=== PATIENT | female | born 2000 | race Caucasian/White ===

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

== ENCOUNTER 2018-12-19 20:55 | Inpatient (IN) | payer OTHER, MEDICAID ==
[2018-12-19] MEDS ORDERED: SODIUM CHLORIDE 0.9% 500 ML 500 ML IV ONE (21:18)
[2018-12-19] MEDS ORDERED: SODIUM CHLORIDE 0.9% 1,000 ML IV ONE (21:18)
[2018-12-19 21:30] LABS: Basophils % (A) 0 %; Eosinophils # (A) 0.3 k/uL (0-0.7); Eosinophils % (A) 3 %; HCT 33.4 % (34.0-46.0); HGB 10.8 gm/dL (11.4-16.0); Lymphocytes # (A) 2.6 k/uL (1.0-4.8); Lymphocytes % (A) 26 %; MCH 26.4 pg (25.0-35.0); MCHC 32.5 g/dL (31.0-37.0); MCV 81.4 fL (80.0-100.0); Monocytes # (A) 0.5 k/uL (0-1.0); Monocytes % (A) 5 %; Neutrophils # (A) 6.5 k/uL (1.3-7.7); Neutrophils % (A) 65 %; Platelet Count 254 k/uL (150-450); RDW 14.2 % (11.5-15.5)
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
[2018-12-19 21:43] LABS: ALT 19 U/L (9-52); AST 16 U/L (14-36); Acetaminophen <10.0 ug/mL; African American GFR (CKD) >90 (>60 ml/min/1.73 sqM); Albumin 3.6 g/dL (3.5-5.0); Alkaline Phosphatase 73 U/L (38-126); Anion Gap 7 mmol/L; Blood Urea Nitrogen 16 mg/dL (7-17); Calcium 7.9 mg/dL (8.4-10.2); Carbon Dioxide 20 mmol/L (22-30); Chloride 114 mmol/L (98-107); Glucose 113 mg/dL (74-99); Potassium 3.4 mmol/L (3.5-5.1); Salicylate <1.0 mg/dL; Sodium 141 mmol/L (137-145); Total Bilirubin 0.3 mg/dL (0.2-1.3)
[2018-12-20 01:45] LABS: Appearance,Urine Clear (Clear); Bilirubin,Urine Negative (Negative); Blood,Urine Negative (Negative); Color,Urine Light Yellow; Glucose,Urine (UA) 2+ (Negative); Ketones,Urine Negative (Negative); Leukocyte Esterase,Urine Small (Negative); Mucus,Urine Rare /hpf; Nitrite,Urine Positive (Negative); PH, Urine 5.5 (5.0-8.0); Protein,Urine Negative (Negative); Specific Gravity,Urine 1.014 (1.001-1.035); Squamous Epithelial Cell,Urine 1 /hpf (0-4); Urobilinogen,Urine <2.0 mg/dL (<2.0)
[2018-12-20 01:56] LABS: Amphetamine Screen,Urine Not Detected (NotDetected); Barbiturate Screen,Urine Not Detected (NotDetected); Benzodiazepines Screen,Urine Not Detected (NotDetected); Cocaine Screen,Urine Not Detected (NotDetected); Methadone Screen, Urine Not Detected (NotDetected); Opiate Screen,Urine Not Detected (NotDetected); Oxycodone Screen, Urine Not Detected (NotDetected); Phencyclidine Screen,Urine Not Detected (NotDetected); Tricyclic Antidepressant,Urine Not Detected (NotDetected); Urn Cannabinoid Scrn Not Detected (NotDetected)
[2018-12-20] MEDS ORDERED: ONDANSETRON 4 MG/2 ML VIAL IVP STA (09:37)
[2018-12-20] MEDS ORDERED: MAGNESIUM HYDROXIDE 2,400 MG/10 ML CUP PO PRN (17:46)
[2018-12-20 17:48] VITALS: BMI 30.2
[2018-12-20] MEDS: ZIPRASIDONE 20 MG VIAL IM PRN (23:28)
[2018-12-21] MEDS: NICOTINE 21MG/24HR PATCH TRANSDERM SCH ×2 (08:17→19:04)
[2018-12-21] MEDS ORDERED: NICOTINE 14MG/24HR PATCH TRANSDERM SCH (09:00)
[2018-12-21 09:13] LABS: ALT 24 U/L (9-52); AST 12 U/L (14-36); African American GFR (CKD) >90 (>60 ml/min/1.73 sqM); Albumin 3.8 g/dL (3.5-5.0); Alkaline Phosphatase 52 U/L (38-126); Anion Gap 9 mmol/L; Bilirubin, Delta 0.2 mg/dL (0.0-0.2); Bilirubin,Unconjugated 0.1 mg/dL (0.0-1.1); Blood Urea Nitrogen 13 mg/dL (7-17); Calcium 9.1 mg/dL (8.4-10.2); Carbon Dioxide 22 mmol/L (22-30); Chloride 110 mmol/L (98-107); Cholesterol 122 mg/dL (<200); Glucose 111 mg/dL (74-99); HDL Cholesterol 33 mg/dL (40-60); LDL Cholesterol,Calculated 67 mg/dL (0-99); Potassium 4.5 mmol/L (3.5-5.1); Sodium 141 mmol/L (137-145); Total Bilirubin 0.3 mg/dL (0.2-1.3); Total Protein 6.3 g/dL (6.3-8.2); Triglycerides 111 mg/dL (<150)
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
[2018-12-21] MEDS: ACETAMINOPHEN TAB 325 MG TAB PO PRN (14:05)
--- NOTE | 2018-12-21 14:50 | P.HPIM ---
History of Present Illness Chief Complaint: Medical management and history and physical This is a 18-year-old female who is admitted to the ICU under psychiatric service for overdose on medication. Patient apparently overdosed on baclofen, naproxen, melatonin and Trileptal. Patient the time examination was not complaining of any chest pain, racing heart, no cough, no shortness of breath, no abdominal pain, nausea and vomiting, or diarrhea constipation. She said that she has a history of back pain and she was taking baclofen and naproxen which were helping her but she is off of those medications right now as she overdosed on them. Patient also says that she has a history of herpes and she takes Valtrex at home every day. Review of Systems All systems: negative Past Medical History Past Medical History: No Reported History Additional Past Medical History / Comment(s): SCOLIOSIS., PT ADOPTED-DOES NOT KNOW HER FAMILY HX. HSV 2. MISCARRIAGE 2018 History of Any Multi-Drug Resistant Organisms: None Reported Past Surgical History: No Surgical Hx Reported Additional Past Anesthesia/Blood Transfusion Reaction / Comment(s): NO ANESTHESIA HX. Past Psychological History: ADD/ADHD, Anxiety, Bipolar, Depression Smoking Status: Current every day smoker Past Alcohol Use History: Occasional Additional Past Alcohol Use History / Comment(s): SMOKED OCCASIONALLY FOR <1 YEAR., QUIT SMOKING AUGUST 2017. Past Drug Use History: Cocaine, Marijuana Additional Drug Use History / Comment(s): NO CURRENT MARIJUANA USE. - Past Family History Mother Additional Family Medical History / Comment(s): pt is adopted Medications and Allergies Home Medications Medication Instructions Recorded Confirmed Type Baclofen [Lioresal] 10 mg PO TID PRN 12/19/18 12/20/18 History Estarylla 1 tab PO DAILY 12/19/18 12/20/18 History Naproxen 500 mg PO Q12H PRN 12/19/18 12/20/18 History valACYclovir [Valtrex] 500 mg PO DAILY 12/19/18 12/20/18 History Allergies Allergy/AdvReac Type Severity Reaction Status Date / Time cephalexin [From Keflex] Allergy Unknown Rash/Hives Verified 12/20/18 17:47 PEACHES Allergy Rash/Hives Uncoded 12/20/18 17:49 Physical Exam Vitals: Vital Signs Temp Pulse Resp BP BP 12/21/18 06:49 97.5 F L 74 16 102/53 12/20/18 17:25 98.0 F 86 16 134/76 134/76 Intake and Output 12/20/18 12/21/18 12/21/18 22:59 06:59 14:59 Intake Total 1999 Balance 1999 Intake: Amount of Fluid Infused ( 2000 ml) Other: Weight 79.83 kg On exam, alert and oriented x3. HEENT: Conjunctivae normal. eyes normal. NECK: No JVD. No thyroid enlargement. No LNs CARDIOVASCULAR: S1, S2 positive RESPIRATION: Breath sounds diminished in the bases. No rhonchi or crackles. No bronchial breathing. ABDOMEN: Soft, nontender . No guarding. no masses palpable. No ascites, No hepatosplenomegaly.Bowel sounds heard. LEGS: No edema. no swelling NERVOUS SYSTEM: Cranial N 2-12 grossly normal. Moves all 4 limbs. No focal deficits. No sensory deficit. No signs of cerebellar dysfucntion. Skin: no ulcer no rash Results CBC & Chem 7: 12/19/18 21:14 12/21/18 08:15 Labs: Abnormal Lab Results - Last 24 Hours (Table) 12/21/18 Range/Units 08:15 Chloride 110 H (98-107) mmol/L Glucose 111 H (74-99) mg/dL AST 12 L (14-36) U/L HDL Cholesterol 33 L (40-60) mg/dL Thrombosis Risk Factor Assmnt - Choose All That Apply Any of the Below Risk Factors Present?: No Other Risk Factors: No Other congenital or acquired thrombophilia - If yes, enter type in comment: No Thrombosis Risk Factor Assessment Level: Very Low Risk Assessment and Plan Assessment: - Intentional overdose of medication - Bipolar disorder - Depression - History of herpes - History of back pain Plan - Patient is admitted under psychiatric service and psychiatric [facility]ottlie[facility] - We will continue to keep her off of the medication and she overdosed on them. - Patient says that she takes Valtrex at home. We will hold off on the Valtrex for now and see how she does. - Patient can be given Tylenol when necessary if needed for back pain - Less of the medical care as per psychiatric service - We'll continue to follow the patient along with you. If you have any questions please do not hesitate to page us
[2018-12-21] MEDS: MAG HYDROX/AL HYDROX/SIMETH 30 ML CUP PO PRN (19:04)
[2018-12-21] MEDS: ARIPiprazole 10 MG TAB PO SCH (21:39)
[2018-12-21] MEDS: MELATONIN 1 MG TAB PO SCH (21:39)
[2018-12-22] MEDS: NICOTINE 21MG/24HR PATCH TRANSDERM SCH ×2 (07:23→16:17)
--- NOTE | 2018-12-22 09:16 | P.PN ---
Progress Note - Text Progress Note Date: 12/22/18 Interval History: Patient is a 18-year-old female who is seen this morning, she is reporting that she tossed and turned all night and couldn't sleep and feels tired this morning. She reports that she's not feeling as depressed and was able to get up and eat breakfast this morning. Patient reports no current suicidal thoughts and states she attended the activity groups and wrap up group yesterday. She reports no side effects from the medication. Mental Status: Appearance/Attitude: Patient is casually dressed, makes eye contact and was cooperative. Behavior: Patient does not exhibit any psychomotor agitation or retardation. Speech/Language: Patient's speech is spontaneous of normal volume and rhythm and she is coherent Thought Process: Patient is goal-directed there is no evidence of loose associations or flight of ideas Thought Content: Patient denies any auditory or visual hallucinations and no delusions or paranoid ideation is elicited. Patient states she tossed and turned most of the night feels tired this morning but was able to get up and eat breakfast. She reports no side effects from the medication and states she attended activity groups in the wrap up group yesterday. Suicidal/Homicidal Ideation: Patient denies any current suicidal or homicidal ideation Sensorium/Cognition: Patient is alert and oriented to person, place, and time and her recent and remote memory are grossly intact Mood/Affect: Patient's mood remains bland and her affect blunted Insight/Judgment: Patient's insight and judgment are fair Assessment: Patient was compliant with medication, attended activity groups and wrap up group yesterday but states that she tossed and turned most of the night and feels tired this morning. She states that she was able to get up and eat breakfast and is not currently feeling suicidal. She states that she still feels somewhat depressed. Plan: Patient will continue on Abilify 10 mg to stabilize her mood, she was encouraged to attend groups and activities and will increase her melatonin to 3 mg at bedtime to assist with her sleep. Patient continues to require hospitalization to further stabilize her mood.
[2018-12-22 11:46] LABS: Hemoglobin A1C 6.1 % (4.0-6.0)
[2018-12-22] MEDS: ACETAMINOPHEN TAB 325 MG TAB PO PRN (12:32)
[2018-12-22] MEDS: valACYclovir 500 MG TAB PO SCH (16:16)
[2018-12-22] MEDS: MAG HYDROX/AL HYDROX/SIMETH 30 ML CUP PO PRN (19:01)
[2018-12-22] MEDS: MELATONIN 1 MG TAB PO SCH (21:08)
[2018-12-22] MEDS: ARIPiprazole 10 MG TAB PO SCH (21:08)
[2018-12-22] MEDS ORDERED: WATER FOR INJECTION, STERILE 10 ML IV ONE (21:49)
[2018-12-22] MEDS ORDERED: ZIPRASIDONE 20 MG VIAL IM ONE (21:49)
[2018-12-22] MEDS: ZIPRASIDONE 20 MG VIAL IM PRN (21:51)
[2018-12-23] MEDS: NICOTINE 21MG/24HR PATCH TRANSDERM SCH (07:24)
[2018-12-23] MEDS: valACYclovir 500 MG TAB PO SCH (07:24)
[2018-12-23] MEDS: ACETAMINOPHEN TAB 325 MG TAB PO PRN (11:19)
--- NOTE | 2018-12-23 14:41 | PN ---
PROGRESS NOTE DATE OF SERVICE: 12/23/2018 CHIEF COMPLAINT: The patient was depressed. She felt worthless. She had thoughts of cutting herself and she overdosed. INTERVAL HISTORY: The patient has been doing fair. She had a quiet evening last night. She comes out on the unit. She interacts for the most part appropriately. She attends groups. Toward the nighttime she started getting anxious. She said she could not fall asleep; that got her more anxious, to the point where she got into quite an intense state. She requested p.r.n. medication and was given Geodon. She said she slept after that. Today she has been up. She comes out in the day area. She had attended one of the 2 groups so far today. She generally has been appropriate in her mood and function. It is noted that she got upset about some things that got discussed on a telephone call with her boyfriend. She asked for p.r.n. medications for that. Staff encouraged her to do some therapeutic activity to help calm herself. She ended up not taking any p.r.n. For the most part, her mood has been fairly good today. She talked at length about the issues she has struggled with with her family. She has a twin brother who is autistic. She talked about how she was adopted with her brother at [age] year of age. Somewhere in her childhood years she was told that she was adopted. She said she developed a sense of despair over that, thinking that her parents had abandoned her, as if there must have been something wrong with her. She can acknowledge poor self-esteem and a lot of self-blame. She notes that by around age 12 especially, she started to become quite rebellious. She ended up having some intermediate time and juvenile placement because of that. In her earlier day, she can acknowledge that she did have a tendency towards some acting-out behavior. She says that her brother, who is autistic, got a lot of attention, and that may have been a factor for some of her bad feeling. She dropped out of school early in high school and eventually got a GED. She says she does have interest in pursuing something in the science field. She tolerates her psychotropic medications. MENTAL STATUS: Patient gave fairly good eye contact. She was restless. She answered questions with direct responses. Her thoughts were clear. Her affect was a little intense, though not to a significant degree. Her mood was quiet, though not down or depressed. She did not appear to be distressed. There was no indication of thought disorder. Cognition was clear. ASSESSMENT: I will continue current diagnosis and treatment plan. I will continue psychotropic medications the same. I reviewed medications with the patient. She has just been increased on her Abilify. I strongly encouraged her to utilize coping skills to manage some of her difficult feelings as opposed to thinking about turning to medication. I will start her on Vistaril 25 mg 3 times a day p.r.n. The patient understands that she needs to do some therapeutic walking and relaxation techniques prior to receiving a p.r.n. medication. I will increase the patient's melatonin to 3 mg at bedtime as she requested, which she believes will help with sleep. We will focus on stabilization and discharge planning. JOSE LUIS / REINA: [id number] /
[2018-12-23 17:10] LABS: Iron Saturation 19.75 (12.00-45.00)
[2018-12-23] MEDS: NAPROXEN 250 MG TAB PO PRN (18:27)
[2018-12-23] MEDS: hydrOXYzine PAMOATE 25 MG CAP PO PRN (18:58)
[2018-12-23] MEDS: ARIPiprazole 10 MG TAB PO SCH (21:12)
[2018-12-23] MEDS: MELATONIN 1 MG TAB PO SCH (21:12)
[2018-12-24] MEDS: NICOTINE 21MG/24HR PATCH TRANSDERM SCH (08:31)
[2018-12-24] MEDS: valACYclovir 500 MG TAB PO SCH (08:31)
[2018-12-24] MEDS: NAPROXEN 250 MG TAB PO PRN (11:41)
--- NOTE | 2018-12-24 12:17 | PN ---
PROGRESS NOTE DATE OF SERVICE: 12/24/2018. CHIEF COMPLAINT: The patient was depressed. She felt worthless. She had thoughts of cutting herself and she overdosed. INTERVAL HISTORY: The patient has been doing fair. She had some ups and downs last evening. Her main issue yesterday was a telephone call from her mother. She said her mother made comments about her father dying and some of the issues that she said her mother had was that she does not help her mother around the house. She agreed that she has not been the best in that regard. She acknowledges that she has tended to be in denial about the fact that her father is seriously ill and that he is not likely to be alive for any extended length of time. 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 She says overall her mood is somewhat better. She said she slept fair last night. Staff documented that she slept 5-1/2 hours as of 5 in the morning. She has been attending groups. In general she has been appropriate in her behavior and function. She will interact with others. It is noted that yesterday after the after the telephone call, she was quite distressed and got p.r.n. Vistaril. I had instructed nursing to have her utilize some relaxation techniques before receiving medications. She tolerates her psychotropic medications. She feels the increase in melatonin is effective at helping her sleep. MENTAL STATUS: Patient sat with some restlessness. She answered questions with direct responses. Her thoughts were clear. Her affect was somewhat anxious and a little tense, though not significantly so. Her mood was reserved, though not down or depressed. She did not appear to be significantly distressed. There was no indication of thought disorder. Cognition was clear. ASSESSMENT: I will continue the current diagnosis and treatment plan. I will continue psychotropic medications the same. I have ordered an iron screen given that she has mild anemia with an MCV of 81. In addition, I will order a prolactin level. Patient says that she has had some breast discharge which was more prominent in the past when she was on Invega. She notes that she has been off Invega for 9 months, though continues to have some discharge on and off. She describes her periods as lasting about 7 days with a heavy flow which likely accounts for her anemia. We will continue to focus on stabilization and discharge planning. MMODL / IJN: [id number] /
[2018-12-24] MEDS: ACETAMINOPHEN TAB 325 MG TAB PO PRN (13:26)
[2018-12-24] MEDS: LIDOCAINE 5% PATCH TOPICAL SCH (15:57)
[2018-12-24] MEDS: ARIPiprazole 10 MG TAB PO SCH (21:20)
[2018-12-24] MEDS: MELATONIN 1 MG TAB PO SCH (21:20)
[2018-12-25] MEDS: valACYclovir 500 MG TAB PO SCH (08:34)
[2018-12-25] MEDS: LIDOCAINE 5% PATCH TOPICAL SCH (08:35)
[2018-12-25] MEDS: NICOTINE 21MG/24HR PATCH TRANSDERM SCH (08:35)
[2018-12-25] MEDS ORDERED: ARIPiprazole IM SYRINGE 400 MG (NO CHARGE) IM ONE (10:03)
--- NOTE | 2018-12-25 11:29 | P.PN ---
Progress Note - Text Progress Note Date: 12/25/18 Interval History: Patient is a 18-year-old female who was seen today and she states that the Abilify has been working well for her. She reports that she is now feeling more positive and more energized in the morning. She states that she's sleeping better and has used the Vistaril once or twice for anxiety. She reports that she is feeling better, her thinking is clear and she's been attending groups and activities. Patient reports no side effects from the medication. Mental Status: Appearance/Attitude: Patient is neatly and appropriately dressed, made eye contact and was cooperative. Behavior: Patient does not exhibit any psychomotor agitation or retardation. Speech/Language: Patient's speech was spontaneous of normal volume and rhythm and she is coherent. Thought Process: Patient is goal-directed there is no evidence of loose association or flight of ideas Thought Content: Patient denies any auditory or visual hallucinations and no delusions or paranoid ideation or elicited. Patient reports that her thinking is much clearer, she is no longer having any suicidal thoughts and is having a more positive outlook. She reports not feeling as depressed. Patient is sleeping and eating well. Suicidal/Homicidal Ideation: Patient denies any current suicidal or homicidal ideation Sensorium/Cognition: Patient is alert and oriented to person, place, and time and her recent and remote memory are grossly intact. Mood/Affect: Patient's mood is pleasant and her affect is appropriate Insight/Judgment: Patient's insight and judgment are fair Assessment: Patient states that her thinking is clearer, she is feeling more positive and no longer having any suicidal ideation. She does feel that the Abilify has been beneficial and she is feeling more motivated and has more energy. She states that she is leaping well at night and has used Vistaril occasionally for anxiety. Patient and I discussed her elevated prolactin level that she needs to continue to follow with her OB to see if he continues to drop now that she is no longer on Invega. Patient has been attending groups and activities. Plan: Patient will continue on Abilify 10 mg for 2 more weeks and then discontinue it as she will receive Abilify long-acting injectable form 100 mg IM today. Patient will continue on melatonin 3 mg at bedtime to target her sleep and Vistaril 25 mg as needed to target any anxiety symptoms. Patient and I discussed discharge tomorrow when she was agreeable with this plan.
[2018-12-25] MEDS: hydrOXYzine PAMOATE 25 MG CAP PO PRN (17:03)
[2018-12-25] MEDS: MELATONIN 1 MG TAB PO SCH (20:53)
[2018-12-25] MEDS: ARIPiprazole 10 MG TAB PO SCH (20:53)
[2018-12-26 07:02] VITALS: BP 108/67; PULSE 81; RESP 14; TEMP 98.3
[2018-12-26] MEDS: LIDOCAINE 5% PATCH TOPICAL SCH (08:39)
[2018-12-26] MEDS: valACYclovir 500 MG TAB PO SCH (08:40)
[2018-12-26] MEDS: NICOTINE 21MG/24HR PATCH TRANSDERM SCH ×2 (08:41→08:52)
--- NOTE | 2018-12-26 08:43 | P.DS ---
Providers Date of admission: 12/20/18 16:50 Expected date of discharge: 12/26/18 Attending physician: Juanita Delgado MD Consults: 12/20/18 17:46 Consult Physician Routine Consulting Provider: Cori Baires Consult Reason/Comments: H & P and medical care Do you want consulting provider notified?: Yes Primary care physician: Huong Gant [facility] Course: Discharge Diagnosis: Bipolar type II, current episode depressed; borderline personality disorder Reason for Admission: Patient is a 18-year-old female brought to the emergency room after taking an overdose of baclofen Naprosyn melatonin and Trileptal. Patient states that she tried to overdose on medication summary which were hers, some of which were prior prescriptions for herself because she felt worthless and didn't matter to anyone. She states that she was last seen at [facility] by the prescriber in September of this year and the doctor took her off meds. She then later admitted that she stopped the Zoloft because she was doing well and didn't think she needed it anymore. She had also been on long- acting injectable Invega and this was stopped by her primary care physician because of galactorrhea. She has been on no meds since September 2018. She states that she had an appointment for December 29 and hasn't seen her therapist for some time as well. She states that she started to get depressed and felt like cutting herself and has been for the last several weeks on her arms, she describes being irritable and getting into fights with people. She states that she is yelling and screaming at home. She states when she took the overdose and told her brother who then told her mother who called the police she ran away from the police and then returned home when she felt tired and the police br ought her to the emergency room. States that she was doing well and asked why she stopped the medication. She states she spends her days sitting on the phone with her boyfriend or listening to music. Patient's psychiatric history began at the age of 12 when she was admitted for treatment to [facility] in [facility] and after multiple admissions due to suicide attempts she was placed at [facility] at the age of 13 and spent 2 years there and was transferred to [facility] where she was at from [age]. She states after that released she's been at [facility], [facility], here in 2016 and [facility] in April 2018 where she was placed on Invega and Zoloft. Patient states that all but one admission was due to a suicide attempt all of them being overdoses. Patient states that she has difficulty controlling her moods, describes feeling irritable and depressed, getting into both physical and verbal confrontations with people, feeling tired and groggy, complaints of side effects from all of the medications. States she cuts herself to feel something. States that she over thinks things. Patient has been diagnosed she states with bipolar disorder, was in DBT therapy but asked to leave because she didn't show up for sessions. Was working at [employer] for less than a month in 2017 by [employer] and was fired because she wasn't doing her job. She states this is the only job that she's had. Patient describes outbursts of anger and frustration, depressive episodes with suicidal ideation and attempts, impulsive behavior and verbal and physical confrontations. Patient has used cocaine in the past, uses marijuana "every time I can" which is at least once a week. Patient does not endorse a history of auditory or visual hallucinations and does not endorse any paranoid or delusional ideation. Patient also complains of over thinking and feeling anxious. And states that all the medication she's been on have caused side effects. She states that she was doing well on the Abilify but it was stopped because she felt too sedated and a zombie on it. She states she was doing well on the Invega and Zoloft and it was stopped because of side effects and also because she thought she was doing well. Mental status on Admission: Appearance/Attitude: Patient is dressed in a hospital gown, makes intermittent eye contact and is cooperative Behavior: Patient does not exhibit any psychomotor agitation or retardation Speech/Language: Patient's speech is spontaneous of normal volume and rhythm and she is coherent Thought Process: Patient is goal-directed there is no evidence of loose association or flight of ideas Thought Content: Patient denies any auditory or visual hallucinations and no delusions or paranoid ideation or elicited. Patient states that she feels the urges to self-harm so that she can feel something, has recently become increasingly depressed and feeling worthless and that no one cares about her and that nothing matters. She states she's been irritable and getting into verbal confrontations with her parents. Patient has been cutting her forearm over the last several weeks. Patient states that she took an overdose of medications that she had been prescribed recently as well as some that she had from prior prescriptions because she felt that no one cared. Patient reports feeling worthless, irritable. She states that she's been sleeping but still feels tired Suicidal/Homicidal Ideation: Patient denies any current suicidal or homicidal ideation and denies any urges to cut at this time. Sensorium/Cognition: Patient is alert and oriented to person, place, and time and her recent and remote memory are grossly intact Mood/Affect: Patient's mood is depressed and sullen and her affect is a ppropriate to her mood Insight/Judgment: Patient's insight and judgment are limited Hospital Course: Patient was admitted on a voluntary basis, placed on routine observation in group and activity therapy were ordered. Patient also had routine laboratory studies as well as a medical consultation ordered. Patient and I discussed her response to medication and patient felt that Abilify had worked well for her in the past the patient was begun on Abilify titrated to an oral dose of 10 mg a day. Patient reported improvement in her mood, feeling more positive no longer having any suicidal ideation and states that she felt less depressed. Patient was also given melatonin 3 mg at bedtime to assist with sleep. Patient was also prescribed Valtrex for an outbreak of genital herpes. Patient reported doing well on the Abilify reported no side effects and we discussed using the long-acting injectable and she was agreeable to this that she had been on it in the past. Patient was given an injection of Abilify maintenna 400 mg on December 25. Patient was attending groups and activities, reported her sleep was restful and that her mood had improved. Patient discussed her plans to work with [employer] at [facility] to assist in finding work. She reports that her family meeting went well. Patient reported no suicidal ideation, her mood had improved and she was sleeping well and felt r geoffrey to return home. Allergies cephalexin [From Keflex] Allergy (Unknown, Verified 12/20/18 17:47) Rash/Hives PEACHES Allergy (Uncoded 12/20/18 17:49) Rash/Hives Laboratory Last Values WBC 10.0 k/uL (4.0-11.0) 12/19/18 21:14 RBC 4.10 m/uL (3.80-5.40) 12/19/18 21:14 Hgb 10.8 gm/dL (11.4-16.0) L 12/19/18 21:14 Hct 33.4 % (34.0-46.0) L 12/19/18 21:14 MCV 81.4 fL (80.0-100.0) 12/19/18 21:14 MCH 26.4 pg (25.0-35.0) 12/19/18 21:14 MCHC 32.5 g/dL (31.0-37.0) 12/19/18 21:14 RDW 14.2 % (11.5-15.5) 12/19/18 21:14 Plt Count 254 k/uL (150-450) 12/19/18 21:14 Neutrophils % 65 % 12/19/18 21:14 Lymphocytes % 26 % 12/19/18 21:14 Monocytes % 5 % 12/19/18 21:14 Eosinophils % 3 % 12/19/18 21:14 Basophils % 0 % 12/19/18 21:14 Neutrophils # 6.5 k/uL (1.3-7.7) 12/19/18 21:14 Lymphocytes # 2.6 k/uL (1.0-4.8) 12/19/18 21:14 Monocytes # 0.5 k/uL (0-1.0) 12/19/18 21:14 Eosinophils # 0.3 k/uL (0-0.7) 12/19/18 21:14 Basophils # 0.0 k/uL (0-0.2) 12/19/18 21:14 Sodium 141 mmol/L (137-145) 12/21/18 08:15 Potassium 4.5 mmol/L (3.5-5.1) 12/21/18 08:15 Chloride 110 mmol/L (98-107) H 12/21/18 08:15 Carbon Dioxide 22 mmol/L (22-30) 12/21/18 08:15 Anion Gap 9 mmol/L 12/21/18 08:15 BUN 13 mg/dL (7-17) 12/21/18 08:15 Creatinine 0.73 mg/dL (0.52-1.04) 12/21/18 08:15 Est GFR (CKD-EPI)AfAm >90 (>60 ml/min/1.73 sqM) 12/21/18 08:15 Est GFR (CKD-EPI)NonAf >90 (>60 ml/min/1.73 sqM) 12/21/18 08:15 Glucose 111 mg/dL (74-99) H 12/21/18 08:[address] Glu mg/dL 128 12/21/18 08:15 Hemoglobin A1c 6.1 % (4.0-6.0) H 12/21/18 08:15 Calcium 9.1 mg/dL (8.4-10.2) 12/21/18 08:15 Iron 62 ug/dL (50-170) 12/21/18 08:15 TIBC 314 ug/dL (228-460) 12/21/18 08:15 Iron Saturation 19.75 (12.00-45.00) 12/21/18 08:15 Total Bilirubin 0.3 mg/dL (0.2-1.3) 12/21/18 08:15 Conjugated Bilirubin 0.0 mg/dL (0.0-0.3) 12/21/18 08:15 Unconjugated Bilirubin 0.1 mg/dL (0.0-1.1) 12/21/18 08:15 Delta Bilirubin 0.2 mg/dL (0.0-0.2) 12/21/18 08:15 AST 12 U/L (14-36) L 12/21/18 08:15 ALT 24 U/L (9-52) 12/21/18 08:15 Alkaline Phosphatase 52 U/L (38-126) 12/21/18 08:15 Total Protein 6.3 g/dL (6.3-8.2) 12/21/18 08:15 Albumin 3.8 g/dL (3.5-5.0) 12/21/18 08:15 Triglycerides 111 mg/dL (<150) 12/21/18 08:15 Cholesterol 122 mg/dL (<200) 12/21/18 08:15 LDL Cholesterol, Calc 67 mg/dL (0-99) 12/21/18 08:15 HDL Cholesterol 33 mg/dL (40-60) L 12/21/18 08:15 TSH 1.650 mIU/L (0.465-4.680) 12/21/18 08:15 Prolactin 52.7 ng/mL (2.8-29.2) H 12/21/18 08:15 Urine Color Light Yellow 12/20/18 01:32 Urine Appearance Clear (Clear) 12/20/18 01:32 Urine pH 5.5 (5.0-8.0) 12/20/18 01:32 Ur Specific [place] 1.014 (1.001-1.035) 12/20/18 01:32 Urine Protein Negative (Negative) 12/20/18 01:32 Urine Glucose (UA) 2+ (Negative) H 12/20/18 01:32 Urine Ketones Negative (Negative) 12/20/18 01:32 Urine Blood Negative (Negative) 12/20/18 01:32 Urine Nitrite Positive (Negative) H 12/20/18 01:32 Urine Bilirubin Negative (Negative) 12/20/18 01:32 Urine Urobilinogen <2.0 mg/dL (<2.0) 12/20/18 01:32 Ur Leukocyte Esterase Small (Negative) H 12/20/18 01:32 Urine WBC 1 /hpf (0-5) 12/20/18 01:32 Ur Squamous Epith Cells 1 /hpf (0-4) 12/20/18 01:32 Urine Mucus Rare /hpf (None) H 12/20/18 01:32 Urine HCG, Qual Not Detected (Not Detectd) 12/20/18 01:32 Salicylates <1.0 mg/dL 12/19/18 21:14 Urine Opiates Screen Not Detected (NotDetected) 12/20/18 01:32 Ur Oxycodone Screen Not Detected (NotDetected) 12/20/18 01:32 Urine Methadone Screen Not Detected (NotDetected) 12/20/18 01:32 Ur Propoxyphene Screen Not Detected (NotDetected) 12/20/18 01:32 Acetaminophen <10.0 ug/mL 12/19/18 21:14 Ur Barbiturates Screen Not Detected (NotDetected) 12/20/18 01:32 Valproic Acid <10.0 ug/mL 12/19/18 21:14 Oxcarbazepine 13.9 ug/mL (10-35) 12/19/18 21:14 U Tricyclic Antidepress Not Detected (NotDetected) 12/20/18 01:32 Ur Phencyclidine Scrn Not Detected (NotDetected) 12/20/18 01:32 Ur Amphetamines Screen Not Detected (NotDetected) 12/20/18 01:32 U Methamphetamines Scrn Not Detected (NotDetected) 12/20/18 01:32 U Benzodiazepines Scrn Not Detected (NotDetected) 12/20/18 01:32 Urine Cocaine Screen Not Detected (NotDetected) 12/20/18 01:32 U Marijuana (THC) Screen Not Detected (NotDetected) 12/20/18 01:32 Discharge Mental Status: Appearance/Attitude: Patient is neatly dressed, makes eye contact and was cooperative. Behavior: Patient did not exhibit any psychomotor agitation or retardation. Speech/Language: Patient's speech was spontaneous of normal volume and rhythm and she is coherent Thought Process: Patient is goal-directed there is no evidence of loose associations or flight of ideas Thought Content: Patient denied any auditory or visual hallucinations and no delusions or paranoid ideation were elicited. Patient reports that her outlook is more positive, she feels more motivated to do things and states that she is no longer feeling as tired and exhausted during the day as her sleep is more restful. Patient reports her appetite is good. Suicidal/Homicidal Ideation: Patient denies any current suicidal or homicidal ideation Sensorium/Cognition: Patient is alert and oriented to person, place, and time and her recent and remote memory are grossly intact Mood/Affect: Patient's mood is positive and her affect is appropriate Insight/Judgment: Patient's insight and judgment are fair Risk Assessment: Patient's risk for readmission is moderate should she not follow-up with outpatient care and/or medications Discharge Plan: Patient will return home to live with her mother, she'll continue on oral Abilify 10 mg for 13 more days to complete a 2 week course after her injection of long-acting Abilify 400 mg due next on January 22. Patient will also continue on Vistaril 25 mg twice a day as needed for anxiety and continue on Valtrex 500 mg daily for 1 more week to complete a course of 10 days. Patient was advised to follow-up with her assistant shift supervisor regarding control and the Valtrex. Patient will continue to work with [facility] as an outpatient and was encouraged to be compliant with her appointments and medication. She was advised to avoid Patient Condition at Discharge: Stable Plan - Discharge Summary Discharge Rx Participant: No New Discharge Prescriptions: New ARIPiprazole [Abilify] 10 mg PO HS #14 tab Melatonin 3 mg PO HS tab hydrOXYzine PAMOATE [Vistaril] 25 mg PO BID PRN #14 cap PRN Reason: Anxiety ARIPiprazole IM [Abilify Maintena] 400 mg IM QMONTH #1 each Continue Estarylla 1 tab PO DAILY valACYclovir [Valtrex] 500 mg PO DAILY #7 tab Discontinued Naproxen 500 mg PO Q12H PRN PRN Reason: Pain Baclofen [Lioresal] 10 mg PO TID PRN PRN Reason: Muscle Spasm Discharge Medication List Estarylla 1 tab PO DAILY 12/19/18 [History] ARIPiprazole IM [Abilify Maintena] 400 mg IM QMONTH #1 each 12/26/18 [Rx] ARIPiprazole [Abilify] 10 mg PO HS #14 tab 12/26/18 [Rx] Melatonin 3 mg PO HS tab 12/26/18 [Rx] hydrOXYzine PAMOATE [Vistaril] 25 mg PO BID PRN #14 cap 12/26/18 [Rx] valACYclovir [Valtrex] 500 mg PO DAILY #7 tab 12/26/18 [Rx] Follow up Appointment(s)/Referral(s): [facility] [Outside] - 01/01/19 11:30 am (01-01-19 @ 11:30 with Amy Dvoe 01-18-19 @ 3:[address] Echavarria ) Huong Reaves III, MD [Primary Care Provider] - 1-2 days Patient Instructions/Handouts: How to Stop Smoking (DC), Bipolar Disorder (DC), Anxiety (GEN), Suicide Prevention (DC) Activity/Diet/Wound Care/Special Instructions: Activity and diet as tolerated. No guns or weapons in the home. Refrain from alcohol and street drugs that are not prescribed by your physician. TAke all medications as prescribed, and attend all follow up appointments as scheduled. If in need of medication refills, please go to your primary care physician, or to your out patient psychiatric provider. If in crisis, please call , or go to the nearest ER. Discharge Disposition: HOME SELF-CARE
== END 2018-12-26 11:21 | disposition home or self-care (01) | DRG 885 ==
LOC: EC 20:55 → 3MHU 12-20 16:50
PROVIDERS: ADMIT Psychiatry & Neurology Psychiatry; ATTEND Psychiatry & Neurology Psychiatry
DX: F31.81 Bipolar II disorder (principal); M41.9 Scoliosis, unspecified; D64.9 Anemia, unspecified; A60.00 Herpesviral infection of urogenital system, unspecified; S51.819A Laceration without foreign body of unspecified forearm, initial encounter; F90.9 Attention-deficit hyperactivity disorder, unspecified type; F60.3 Borderline personality disorder; T42.8X2A Poisoning by antiparkinsonism drugs and other central muscle-tone depressants, intentional self-harm, initial encounter; T39.312A Poisoning by propionic acid derivatives, intentional self-harm, initial encounter; T42.1X2A Poisoning by iminostilbenes, intentional self-harm, initial encounter; T50.992A Poisoning by other drugs, medicaments and biological substances, intentional self-harm, initial encounter; T43.596A Underdosing of other antipsychotics and neuroleptics, initial encounter; T43.226A Underdosing of selective serotonin reuptake inhibitors, initial encounter; F41.9 Anxiety disorder, unspecified; R45.87 Impulsiveness; M54.9 Dorsalgia, unspecified; F17.210 Nicotine dependence, cigarettes, uncomplicated; Z71.6 Tobacco abuse counseling; Z91.128 Patient's intentional underdosing of medication regimen for other reason; Z91.19 Patient's noncompliance with other medical treatment and regimen; Z79.899 Other long term (current) drug therapy; Z91.5 Personal history of self-harm; Y92.009 Unspecified place in unspecified non-institutional (private) residence as the place of occurrence of the external cause; X78.9XXA Intentional self-harm by unspecified sharp object, initial encounter; Z88.1 Allergy status to other antibiotic agents; Z91.018 Allergy to other foods
CPT/HCPCS: 36415; 80048; 80053; 80061; 80076; 80164; 80183; 80306; 80329; 81001; 81025; 82075; 83036; 83520; 83540; 83550; 84146; 84443; 85025; 93005; 96361; 96374; 99285

== ENCOUNTER 2019-03-17 14:38 | Emergency (ER) | payer OTHER ==
[2019-03-17 14:51] VITALS: BP 130/71; TEMP 97.5
[2019-03-17] MEDS ORDERED: DIPH,PERTUS(ACELL)TETVAC-LF 0.5 ML VIAL IM ONE (15:12)
--- NOTE | 2019-03-17 15:20 | ED ---
General Adult HPI - General Chief complaint: Psychiatric Symptoms Stated complaint: Mental Health Time Seen by Provider: 03/17/19 14:42 Source: patient, family, EMS Mode of arrival: EMS Limitations: no limitations - History of Present Illness Initial comments: Patient presents to the ED by ambulance for evaluation with her mother at bedside. Patient states that she has been having some trouble with her boyfriend today, so she decided to cut herself along her left forearm with a razor. Patient states that she did this out of frustration, and she denies suicidal thoughts or attempt. Patient's mother states that the patient has a history of this. Patient's mother states that the patient is currently taking Abilify. Patient denies any other self-harm attempt, homicidal thoughts, hallucinations, illicit drug use, medication abuse or overdose, alcohol use, seizure, any pain, fever, dyspnea, dizziness, nausea or vomiting, or any other symptoms or complaints. Patient states that she does currently see a psychiatrist. Patient states that she is unsure of her last tetanus shot. - Related Data Previous Rx's Medication Instructions Recorded ARIPiprazole IM [Abilify Maintena] 400 mg IM QMONTH #1 each 12/26/18 ARIPiprazole [Abilify] 10 mg PO HS #14 tab 12/26/18 Allergies Allergy/AdvReac Type Severity Reaction Status Date / Time cephalexin [From Keflex] Allergy Unknown Rash/Hives Verified 03/17/19 14:54 PEACHES Allergy Rash/Hives Uncoded 12/20/18 17:49 Review of Systems ROS Statement: Those systems with pertinent positive or pertinent negative responses have been documented in the HPI. ROS Other: All systems not noted in ROS Statement are negative. Past Medical History Past Medical History: No Reported History Additional Past Medical History / Comment(s): SCOLIOSIS., PT ADOPTED-DOES NOT KNOW HER FAMILY HX. HSV 2. MISCARRIAGE 2018 History of Any Multi-Drug Resistant Organisms: None Reported Past Surgical History: No Surgical Hx Reported Additional Past Anesthesia/Blood Transfusion Reaction / Comment(s): NO ANESTHESIA HX. Past Psychological History: ADD/ADHD, Anxiety, Bipolar, Depression Smoking Status: Current every day smoker Past Alcohol Use History: Occasional Past Drug Use History: Cocaine, Marijuana - Past Family History Mother Additional Family Medical History / Comment(s): pt is adopted General Exam Limitations: no limitations General appearance: alert, in no apparent distress Head exam: Present: atraumatic, normocephalic Eye exam: Present: normal appearance, PERRL, EOMI ENT exam: Present: mucous membranes moist Neck exam: Absent: tenderness Respiratory exam: Present: normal lung sounds bilaterally. Absent: respiratory distress, wheezes, rales, rhonchi Cardiovascular Exam: Present: regular rate, normal rhythm, normal heart sounds, other (Normal radial pulses bilaterally) GI/Abdominal exam: Present: soft. Absent: distended, tenderness Extremities exam: Present: other (Multiple, superficial, linear abrasions are noted to the left forearm anteriorly without any active bleeding noted on exam; old, healing, linear abrasions are noted to the right forearm anteriorly as well) Neurological exam: Present: alert, oriented X3. Absent: motor sensory deficit Psychiatric exam: Present: anxious Skin exam: Present: warm, dry, normal color Course Vital Signs 03/17/19 14:47 Temperature 97.5 F L Pulse Rate 105 H Respiratory 20 Rate Blood Pressure 130/71 O2 Sat by Pulse 100 Oximetry Medical Decision Making - Medical Decision Making Patient has been evaluated by the EPS nurse in the ED. Per EPS nurse, patient and mother agree with outpatient treatment for the patient, and EPS nurse has provided the patient and her mother with referral information. Patient continues to deny feeling suicidal. Patient was instructed to return to the ED if she becomes suicidal, or if she develops new or worsening symptoms. Patient was instructed to follow up closely with her primary care provider. - Lab Data Lab Results 03/17/19 03/17/19 Range/Units 14:27 14:27 Urine HCG, Qual Not Detected (Not Detectd) Urine Opiates Screen Not Detected (NotDetected) Ur Oxycodone Screen Not Detected (NotDetected) Urine Methadone Screen Not Detected (NotDetected) Ur Propoxyphene Screen Not Detected (NotDetected) Ur Barbiturates Screen Not Detected (NotDetected) U Tricyclic Antidepress Not Detected (NotDetected) Ur Phencyclidine Scrn Not Detected (NotDetected) Ur Amphetamines Screen Not Detected (NotDetected) U Methamphetamines Scrn Not Detected (NotDetected) U Benzodiazepines Scrn Not Detected (NotDetected) Urine Cocaine Screen Not Detected (NotDetected) U Marijuana (THC) Screen Detected H (NotDetected) Disposition Clinical Impression: Abrasion Narrative: Self-inflicted left forearm abrasions Disposition: HOME SELF-CARE Condition: Stable Instructions (If sedation given, give patient instructions): Abrasion (ED) Additional Instructions: Return to the ER immediately if you develop thoughts of suicide, or new or worsening symptoms. Is patient prescribed a controlled substance at d/c from ED?: No Referrals: Huong Reaves III, MD [Primary Care Provider] - 1-2 days Time of Disposition: 18:48
[2019-03-17 15:25] LABS: Amphetamine Screen,Urine Not Detected (NotDetected); Barbiturate Screen,Urine Not Detected (NotDetected); Benzodiazepines Screen,Urine Not Detected (NotDetected); Cocaine Screen,Urine Not Detected (NotDetected); Methadone Screen, Urine Not Detected (NotDetected); Opiate Screen,Urine Not Detected (NotDetected); Oxycodone Screen, Urine Not Detected (NotDetected); Phencyclidine Screen,Urine Not Detected (NotDetected); Tricyclic Antidepressant,Urine Not Detected (NotDetected); Urn Cannabinoid Scrn Detected (NotDetected)
[2019-03-17 19:04] VITALS: PULSE 83; RESP 16
== END 2019-03-17 19:04 | disposition home or self-care (01) ==
LOC: EC 14:38
DX: S50.812A Abrasion of left forearm, initial encounter (principal); S50.811D Abrasion of right forearm, subsequent encounter; F31.9 Bipolar disorder, unspecified; F17.200 Nicotine dependence, unspecified, uncomplicated; Z88.1 Allergy status to other antibiotic agents; Z91.018 Allergy to other foods; Z79.899 Other long term (current) drug therapy; Z23 Encounter for immunization; X78.8XXA Intentional self-harm by other sharp object, initial encounter; X78.8XXD Intentional self-harm by other sharp object, subsequent encounter
CPT/HCPCS: 80306; 81025; 82075; 90471; 90715; 99284

== ENCOUNTER 2019-03-17 20:35 | Emergency (ER) | payer OTHER ==
[2019-03-17] MEDS ORDERED: ONDANSETRON ODT 4 MG TAB PO STA (21:16)
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
[2019-03-17 21:37] LABS: Basophils # (A) 0.1 k/uL (0-0.2); Basophils % (A) 1 %; Eosinophils # (A) 0.2 k/uL (0-0.7); Eosinophils % (A) 2 %; HCT 39.2 % (34.0-46.0); HGB 13.1 gm/dL (11.4-16.0); Lymphocytes # (A) 3.3 k/uL (1.0-4.8); Lymphocytes % (A) 26 %; MCH 26.7 pg (25.0-35.0); MCHC 33.5 g/dL (31.0-37.0); MCV 79.5 fL (80.0-100.0); Mean Platelet Volume 6.8; Monocytes # (A) 0.6 k/uL (0-1.0); Monocytes % (A) 5 %; Neutrophils # (A) 8.3 k/uL (1.3-7.7); Neutrophils % (A) 66 %; Platelet Count 333 k/uL (150-450); RBC 4.93 m/uL (3.80-5.40); RDW 13.7 % (11.5-15.5); WBC 12.7 k/uL (4.0-11.0)
[2019-03-17 21:47] LABS: ALT 25 U/L (9-52); AST 17 U/L (14-36); African American GFR (CKD) >90 (>60 ml/min/1.73 sqM); Albumin 4.4 g/dL (3.5-5.0); Alkaline Phosphatase 70 U/L (38-126); Anion Gap 12 mmol/L; Blood Urea Nitrogen 12 mg/dL (7-17); Calcium 9.7 mg/dL (8.4-10.2); Carbon Dioxide 24 mmol/L (22-30); Chloride 104 mmol/L (98-107); Glucose 103 mg/dL (74-99); Potassium 3.8 mmol/L (3.5-5.1); Sodium 140 mmol/L (137-145); Total Bilirubin 0.3 mg/dL (0.2-1.3); Total Protein 7.4 g/dL (6.3-8.2)
[2019-03-18 05:46] VITALS: BP 111/64; PULSE 70; RESP 16; TEMP 98
== END 2019-03-18 05:47 | disposition other institution (70) ==
LOC: EC 20:35
DX: F32.9 Major depressive disorder, single episode, unspecified (principal); R45.851 Suicidal ideations; S50.812A Abrasion of left forearm, initial encounter; F17.200 Nicotine dependence, unspecified, uncomplicated; Z88.1 Allergy status to other antibiotic agents; Z91.018 Allergy to other foods; X83.8XXA Intentional self-harm by other specified means, initial encounter
CPT/HCPCS: 36415; 80053; 82075; 84702; 85025; 99285

== ENCOUNTER 2019-07-19 11:05 | Inpatient (IN) | payer OTHER ==
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
[2019-07-19 12:11] LABS: Amphetamine Screen,Urine Not Detected (NotDetected); Barbiturate Screen,Urine Not Detected (NotDetected); Benzodiazepines Screen,Urine Not Detected (NotDetected); Cocaine Screen,Urine Not Detected (NotDetected); Methadone Screen, Urine Not Detected (NotDetected); Opiate Screen,Urine Not Detected (NotDetected); Oxycodone Screen, Urine Not Detected (NotDetected); Phencyclidine Screen,Urine Not Detected (NotDetected); Tricyclic Antidepressant,Urine Detected (NotDetected); Urn Cannabinoid Scrn Detected (NotDetected)
[2019-07-19] MEDS ORDERED: MAGNESIUM HYDROXIDE 2,400 MG/10 ML CUP PO PRN (14:14)
[2019-07-19] MEDS ORDERED: MAG HYDROX/AL HYDROX/SIMETH 30 ML CUP PO PRN (14:14)
[2019-07-19] MEDS ORDERED: ACETAMINOPHEN TAB 325 MG TAB PO PRN (14:14)
[2019-07-19] MEDS ORDERED: ZIPRASIDONE 20 MG VIAL IM PRN (14:14)
[2019-07-19] MEDS: NICOTINE 14MG/24HR PATCH TRANSDERM SCH (16:00)
[2019-07-19] MEDS ORDERED: PNEUMOCOCCAL VACC-PNEUMOVAX 23 25 MCG/0.5 ML VIAL IM ONE (16:03)
[2019-07-19] MEDS ORDERED: INFLUENZA VACCINE (6 MOS+) 60 MCG/0.5 ML SYRINGE IM ONE (16:03)
[2019-07-20 08:34] LABS: Basophils # (A) 0.1 k/uL (0-0.2); Basophils % (A) 1 %; Eosinophils # (A) 0.3 k/uL (0-0.7); Eosinophils % (A) 3 %; HGB 14.3 gm/dL (11.4-16.0); Lymphocytes # (A) 4.1 k/uL (1.0-4.8); Lymphocytes % (A) 38 %; MCH 25.9 pg (25.0-35.0); MCHC 31.8 g/dL (31.0-37.0); MCV 81.7 fL (80.0-100.0); Mean Platelet Volume 7.3; Monocytes # (A) 0.4 k/uL (0-1.0); Monocytes % (A) 3 %; Neutrophils # (A) 5.8 k/uL (1.3-7.7); Neutrophils % (A) 54 %; Platelet Count 407 k/uL (150-450); RDW 13.3 % (11.5-15.5); WBC 10.8 k/uL (4.0-11.0)
[2019-07-20 08:44] LABS: ALT 23 U/L (4-34); AST 20 U/L (14-36); African American GFR (CKD) >90 (>60 ml/min/1.73 sqM); Albumin 4.5 g/dL (3.5-5.0); Alkaline Phosphatase 81 U/L (38-126); Anion Gap 11 mmol/L; Bilirubin, Delta 0.2 mg/dL (0.0-0.2); Bilirubin,Unconjugated 0.4 mg/dL (0.0-1.1); Blood Urea Nitrogen 18 mg/dL (7-17); Calcium 9.7 mg/dL (8.4-10.2); Carbon Dioxide 25 mmol/L (22-30); Chloride 103 mmol/L (98-107); Cholesterol 167 mg/dL (<200); Glucose 148 mg/dL (74-99); HDL Cholesterol 26 mg/dL (40-60); LDL Cholesterol,Calculated 92 mg/dL (0-99); Non-African American GFR(CKD) 83 (>60 ml/min/1.73 sqM); Potassium 4.5 mmol/L (3.5-5.1); Sodium 139 mmol/L (137-145); Total Bilirubin 0.6 mg/dL (0.2-1.3); Total Protein 7.6 g/dL (6.3-8.2); Triglycerides 247 mg/dL (<150)
[2019-07-20] MEDS ORDERED: ARIPiprazole 5 MG TAB PO SCH (09:00)
[2019-07-20 09:12] LABS: Lithium <0.2 mmol/L
[2019-07-20] MEDS ORDERED: INFLUENZA VACCINE (6 MOS+) 60 MCG/0.5 ML SYRINGE IM ONE (10:00)
[2019-07-20] MEDS ORDERED: PNEUMOCOCCAL VACC-PNEUMOVAX 23 25 MCG/0.5 ML VIAL IM ONE (10:00)
[2019-07-20] MEDS: FLUoxetine HCL 20 MG CAP PO SCH (10:01)
[2019-07-20] MEDS: LITHIUM CARBONATE 300 MG CAP PO SCH (10:01)
[2019-07-20] MEDS ORDERED: LORazepam 1 MG TAB PO STA (10:02)
[2019-07-20] MEDS: NICOTINE 14MG/24HR PATCH TRANSDERM SCH (10:08)
[2019-07-20] MEDS: valACYclovir 500 MG TAB PO SCH (13:13)
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
[2019-07-20 17:31] LABS: Hemoglobin A1C 8.3 % (4.0-6.0)
--- NOTE | 2019-07-20 20:07 | CONS ---
CONSULTATION DATE OF SERVICE: 07/20/2019 REASON FOR CONSULTATION: Advice regarding DJD and other multiple medical issues, requested by Psychiatry. HISTORY OF PRESENT ILLNESS: This 18-year-old woman with a past medical history of scoliosis, history of DJD, history of ADD, ADHD, anxiety, bipolar depression, history of genital herpes, being followed by Dr. Reaves in the outpatient setting was admitted for psychiatric evaluation. The patient apparently taking on a daily dose of Valtrex for genital herpes. Exact dose is unknown at this time. There is no recent eruptions reported. The patient had some stretch pulliam in the legs. There is no history of fever, rigors. No history of headache, loss of consciousness or seizures at this time. PAST MEDICAL HISTORY: History of ADHD, anxiety, bipolar depression, history of DJD. MEDICATIONS: Home medications are per chart, lithium carbonate 600 mg p.o. daily, Prozac 20 mg with lunch, Abilify 400 mg p.o. q.28 days. ALLERGIES: IBUPROFEN, CEPHALEXIN, PEACHES. FAMILY HISTORY: The patient was adopted, unknown. SOCIAL HISTORY: History of THC, history of smoking previously. History of alcohol on a daily basis. REVIEW OF SYSTEMS: ENT: No diminished vision. Diminished hearing. CARDIOVASCULAR system: No angina or palpitations. RESPIRATORY: No cough. GI no nausea or vomiting. as mentioned earlier. CENTRAL NERVOUS SYSTEM: No numbness or weakness. ALLERGY/IMMUNOLOGY: No asthma or hayfever. MUSCULOSKELETAL as mentioned earlier. HEMATOLOGY/ONCOLOGY: No history of anemia. ENDOCRINE: No history of diabetes or hypothyroidism. CONSTITUTIONAL: As mentioned earlier. DERMATOLOGY: Negative. RHEUMATOLOGY negative. PSYCHIATRY as mentioned earlier. PHYSICAL EXAM: Patient is alert, oriented x3. Pulse is 111. Blood pressure 117/75, respiration 14, temperature 98.5, pulse ox 97% on room air. HEENT is conjunctivae normal. Oral mucosa moist. NECK is no jugular venous distention. No carotid bruit. No lymph node enlargement. Cardiovascular system: No S3, no S4. RESPIRATORY: Breath sounds diminished in the bases. No rhonchi. No crackles. ABDOMEN: Soft, nontender. No mass palpable. LEGS no edema. No swelling. NERVOUS SYSTEM: Higher functions as mentioned earlier. Cranial nerves 2 thru 12 grossly intact. Eye movements are full in all directions. The facial movements are normal. Symmetrical. Mouth opens in the midline. No neck weakness is noted. SKIN: No ulcers, rashes or bleeding. JOINTS: No active deforming arthropathy. LAB STUDIES: WBC 7.2, hemoglobin 14.3 and glucose 148. Triglycerides 247. ASSESSMENT: 1. Suicidal ideation/depression. 2. History of genital herpes. 3. History of degenerative joint disease. 4. History of scoliosis. 5. History of attention-deficit disorder/attention-deficit/hyperactivity disorder. 6. Anxiety, bipolar depression. 7. History of nicotine dependence. 8. Increased random blood sugar. 9. Increased triglycerides. RECOMMENDATIONS AND DISCUSSION: This 18-year-old woman who presented with multiple complex medical issues, at this time, I recommend to continue current medications, management and symptomatic treatment. Otherwise, resume the Valtrex as at home. Otherwise, low-fat diet. Recommend close followup with Dr. Reaves in the outpatient setting. We will follow the patient closely with you. Thank you Dr. Granados for letting us participate in care of this patient. MMODL / IJN: [id number] /
[2019-07-20] MEDS: MELATONIN 5 MG TABLET PO SCH (22:21)
[2019-07-21] MEDS ORDERED: ARIPiprazole 5 MG TAB PO SCH (09:00)
[2019-07-21] MEDS: LITHIUM CARBONATE 300 MG CAP PO SCH (10:22)
[2019-07-21] MEDS: FLUoxetine HCL 20 MG CAP PO SCH (10:22)
[2019-07-21] MEDS: NICOTINE 14MG/24HR PATCH TRANSDERM SCH ×2 (10:22→10:28)
[2019-07-21] MEDS: valACYclovir 500 MG TAB PO SCH (10:23)
--- NOTE | 2019-07-21 17:04 | P.PN ---
Progress Note - Text Progress Note Date: 07/21/19 Subjective: Patient was seen today as a cross coverage for . The patient was evaluated, chart reviewed, case discussed with the treatment team. Patient reported better sleep last night. Appetite was reported as " fair". Patient has been going to some groups and other unit activities. The patient is compliant with her medications and denies any adverse reactions. Patient reports feeling relatively better since yesterday and she has been trying to go to groups. She denies feeling suicidal, hopeless, or homicidal. She denies any hallucinations, or paranoid ideation. She reports is still having high anxiety with racing thoughts. Patient denies any manic symptoms. Objective: Vitals has been reviewed. Mental status examination; Appearance: The patient appears stated age, adequately groomed and dressed, no specific features. Gait/posture: Normal gait, Normal arm swinging: No abnormal movements. Attitude and behavior: engaged, cooperative, eye contact. Motor activity: Normal psychomotor activity Speech: Normal rate, tone. Mood: Depressed, Anxious Affect: Constricted Thought form: goal-directed, linear, coherent. Thought content: Non-delusional, denies suicidal thoughts, denies homicidal thoughts, denies intentions or plans. Perception: Denies any auditory or visual hallucinations Attention: No impairment. Orientation: Patient patient was fully oriented to time place person and situation. Insight: Patient has fair insight about her psychiatric disorder. Judgment: Patient has fair judgment about her psychiatric treatment. Assessment: bipolar disorder, current episode depressive. Cannabis use disorder. Plan: Continue inpatient level of care due to need for further stabilization on medications Precautions: Continue 15 minutes check for safety. Consider medical consultation if any acute medical issues arise. Provide the patient individual, group therapy, substance use disorder counseling to give better insight and learn coping skills. Medications: Continue with the plan to increase Abilify to 10 mg on Tuesday and eventually the patient will be started on long-acting injectable Abilify. Continue Prozac 20 mg daily for depression and anxiety symptoms. Continue lithium 600 mg daily for mood stabilization. Continue Vistaril as needed for anxiety. Discharge patient to OUTPATIENT services upon a stabilization
[2019-07-21] MEDS: MELATONIN 5 MG TABLET PO SCH (22:14)
[2019-07-22] MEDS: valACYclovir 500 MG TAB PO SCH (08:27)
[2019-07-22] MEDS: NICOTINE 14MG/24HR PATCH TRANSDERM SCH (08:27)
[2019-07-22] MEDS: ARIPiprazole 10 MG TAB PO SCH (08:27)
[2019-07-22] MEDS: LITHIUM CARBONATE 300 MG CAP PO SCH (08:27)
[2019-07-22] MEDS: FLUoxetine HCL 20 MG CAP PO SCH (08:27)
--- NOTE | 2019-07-22 13:25 | P.PN ---
Progress Note - Text Progress Note Date: 07/22/19 Subjective: Patient was seen today as a cross coverage for . The patient was evaluated, chart reviewed, case discussed with the treatment team. Patient reports feeling better emotionally and her mood is "improving". She denies suicidal or homicidal ideation and reports feeling more motivated. She addressed her sleep is still interrupted, but denies any hallucinations, paranoid ideation, and no delusions could be elicited. She denies any manic symptoms including a euphoric mood, uninhibited behavior, or lack need to sleep due to increased activities. Patient continued going to some groups and other unit activities. The patient is compliant with her medications and denies any adverse reactions. Objective: Vitals has been reviewed. Mental status examination; Appearance: The patient appears stated age, adequately groomed and dressed, no specific features. Gait/posture: Normal gait, Normal arm swinging: No abnormal movements. Attitude and behavior: engaged, cooperative, eye contact. Motor activity: Normal psychomotor activity Speech: Normal rate, tone. Mood: Anxious Affect: Constricted Thought form: goal-directed, linear, coherent. Thought content: Non-delusional, denies suicidal thoughts, denies homicidal thoughts, denies intentions or plans. Perception: Denies any auditory or visual hallucinations Attention: No impairment. Orientation: Patient patient was fully oriented to time place person and situation. Insight: Patient has fair insight about her psychiatric disorder. Judgment: Patient has fair judgment about her psychiatric treatment. Assessment: bipolar disorder, current episode depressive. Cannabis use disorder. Plan: Continue inpatient level of care due to need for further stabilization on medications Precautions: Continue 15 minutes check for safety. Consider medical consultation if any acute medical issues arise. Provide the patient individual, group therapy, substance use disorder counseling to give better insight and learn coping skills. Medications: Continue Abilify to 10 mg on Tuesday and eventually the patient will be started on long-acting injectable Abilify. Continue Prozac 20 mg daily for depression and anxiety symptoms. Continue lithium 600 mg daily for mood stabilization. Continue Vistaril as needed for anxiety. Start Benadryl 25 mg at bedtime when necessary insomnia Start melatonin 5 mg at bedtime for insomnia Discharge patient to OUTPATIENT services upon a stabilization
[2019-07-22] MEDS: hydrOXYzine PAMOATE 25 MG CAP PO PRN (14:54)
[2019-07-22] MEDS: diphenhydrAMINE 25 MG CAP PO PRN (21:39)
[2019-07-22] MEDS: MELATONIN 5 MG TABLET PO SCH (21:39)
[2019-07-23] MEDS: valACYclovir 500 MG TAB PO SCH (09:03)
[2019-07-23] MEDS: FLUoxetine HCL 20 MG CAP PO SCH (09:03)
[2019-07-23] MEDS: NICOTINE 14MG/24HR PATCH TRANSDERM SCH (09:03)
[2019-07-23] MEDS: ARIPiprazole 10 MG TAB PO SCH (09:04)
[2019-07-23] MEDS: LITHIUM CARBONATE 300 MG CAP PO SCH (09:04)
--- NOTE | 2019-07-23 09:39 | P.PN ---
Progress Note - Text Progress Note Date: 07/23/19 Interval History: Patient was seen up at the nurse's desk and wandering the hallways and was dir ectable and agreeable to speak to write in the office. Patient claims that her mood is becoming more stable and that she feels as her mood is improving. Patient states that she feels "calmer" on the current medications and states that she has been compliant with treatment. Patient states that she is trying to go to groups and work on her coping skills and spoke about breathing techniques and other ways to relieve her stress. She states that she has a guardianship hearing coming up this week and will be able to speak with her guardian about where she will be living fdc. Patient states that her mother came to visit her over the weekend and she will be going with her to [place] to visit however once to remain in [place]. She states that her energy is fair today and has been having a good appetite. Patient claims that she met with her chief meter reader and deferred this morning. [employer] spoke with patient about long-acting Abilify and patient is agreeable to have this prior to disc harge. At this time patient denies any suicidal or homical ideations, intent or plan. Patient denies any auditory, visual hallucinations and denies any paranoia or delusions. Patient denies any side effects from the medications and has been compliant with meds. Patient states that she slept better last night due to the Benadryl that she was given. Mental Status Exam: General Appearance: Patient appears to be stated age is alert, less labile today. Patient has long hair, marginal hygiene and grooming wearing street clothing. Behavior: Patient is seated without any agitated behavior. Speech: Patient's speech is fluent and nonpressured. Mood/Affect: Patient reports their mood is depressed and anxious, which is improving, affect is congruent Suicidality/Homicidality: Patient denies having any suicidal or homicidal ideation intent or plan. Perceptions: Patient denies any visual hallucinations. She denies any voices at this time. Though content/process: Patient is goal oriented and logical. Memory and concentration: AOX3, grossly intact for the purposes of this session. Judgment and insight: Poor, mildly improving. Assessment Bipolar disorder, currently depressed Borderline personality disorder Cannabis abuse Nicotine dependence Plan: -Patient continues to meet criteria for inpatient psychiatric admission for symptom stabilization and safety. Patient has signed adult voluntary form and medication consent and was placed in patient's chart. -Medications: Continue lithium 600 mg daily for mood stabilization/suicidality. Increased Abilify to 15 mg daily for mood stabilization. Plan will be to give Abilify Maintenna long-acting injection 400 mg dose tomorrow. Continue with Prozac 20 mg daily for mood. Continue with Benadryl daily at bedtime for sleep. Vistaril 25 mg every 6 hours when necessary for anxiety. Melatonin 5 mg daily at bedtime for sleep. -Will check lithium level tomorrow in the a.m. -When necessary Geodon for agitation/aggression. -NRT - nicotine patch -SW on board for discharge planning. fat purification worker to reach out to mother to inquire about patient's housing. Patient is already established with [facility] for psychiatric follow-up. Likely discharge in 2-3 days.
[2019-07-23] MEDS: hydrOXYzine PAMOATE 25 MG CAP PO PRN (16:21)
[2019-07-23] MEDS: diphenhydrAMINE 25 MG CAP PO PRN (21:21)
[2019-07-23] MEDS: MELATONIN 5 MG TABLET PO SCH (21:21)
[2019-07-24] MEDS: NICOTINE 14MG/24HR PATCH TRANSDERM SCH (08:20)
[2019-07-24] MEDS: LITHIUM CARBONATE 300 MG CAP PO SCH (08:20)
[2019-07-24] MEDS: ARIPiprazole 15 MG TAB PO SCH (08:20)
[2019-07-24] MEDS: FLUoxetine HCL 20 MG CAP PO SCH (08:20)
[2019-07-24] MEDS: valACYclovir 500 MG TAB PO SCH (09:42)
--- NOTE | 2019-07-24 10:09 | P.PN ---
Progress Note - Text Progress Note Date: 07/24/19 Interval History: Patient was seen taking part in group and was directable and agreeable to speak to write in the office. Patient claims that her mood is improving and she states that she feels much calmer on the medications as compared to when she first came in. Patient described going to groups and listening to other patients and states that "I don't feel alone as much when I listened other people talk about their problems". Patient states that she's been also trying to work on her coping skills and asking questions and states that "I talked the most in the groups". Patient states that she is tolerating the medications well so far and was informed of the lithium level being 0.3 this morning. Patient denies any side effects from medications at this time and denies any pacing or akathisia symptoms or tremors. She states that she is agreeable to receive the Abilify Maintenna dose today. She states that she slept fairly well last night however was awoken several times by a patient nearby who has been yelling in her sleep. She states that her energy is fair today and has been having a good appetite. At this time patient denies any suicidal or homical ideations, intent or plan. Patient denies any auditory, visual hallucinations and denies any paranoia or delusions. Patient denies any side effects from the medications and has been compliant with meds Mental Status Exam: General Appearance: Patient appears to be stated age is alert, less labile today and more cooperative. Patient has long hair, marginal hygiene and grooming wearing street clothing. Behavior: Patient is seated without any agitated behavior. Attempts to cooperate. Speech: Patient's speech is fluent and nonpressured. Mood/Affect: Patient reports their mood is improving, affect is congruent Suicidality/Homicidality: Patient denies having any suicidal or homicidal ideation intent or plan. Perceptions: Patient denies any visual hallucinations. She denies any voices at this time. Though content/process: Patient is goal oriented and logical. Memory and concentration: AOX3, grossly intact for the purposes of this session. Judgment and insight: mildly improving. Assessment Bipolar disorder, currently depressed Borderline personality disorder Cannabis abuse Nicotine dependence Plan: -Patient continues to meet criteria for inpatient psychiatric admission for symptom stabilization and safety. Patient has signed adult voluntary form and medication consent and was placed in patient's chart. -Medications: Continue lithium 600 mg daily for mood stabilization/suicidality. Continue with Abilify to 15 mg daily for mood stabilization. Plan will be to give Abilify Maintenna long-acting injection 400 mg dose today. Continue with Prozac 20 mg daily for mood. Continue with Benadryl daily at bedtime for sleep. Vistaril 25 mg every 6 hours when necessary for anxiety. Melatonin 5 mg daily at bedtime for sleep. -lithium level - 0.3 -When necessary Geodon for agitation/aggression. -NRT - nicotine patch - on board for discharge planning. spring floor service worker to reach out to mother to inquire about patient's housing and any concerns for discharge. Patient is already established with [facility] for psychiatric follow-up. Likely discharge tomorrow.
[2019-07-24] MEDS ORDERED: ARIPiprazole IM 400 MG VIAL (NO COST) IM ONE (13:00)
[2019-07-24] MEDS: hydrOXYzine PAMOATE 25 MG CAP PO PRN (17:12)
[2019-07-24] MEDS: diphenhydrAMINE 25 MG CAP PO PRN (21:22)
[2019-07-24] MEDS: MELATONIN 5 MG TABLET PO SCH (21:22)
[2019-07-25 07:00] VITALS: BP 106/60; PULSE 75; RESP 16; TEMP 98.5
[2019-07-25] MEDS: valACYclovir 500 MG TAB PO SCH (09:16)
[2019-07-25] MEDS: LITHIUM CARBONATE 300 MG CAP PO SCH (09:16)
[2019-07-25] MEDS: ARIPiprazole 15 MG TAB PO SCH (09:16)
[2019-07-25] MEDS: NICOTINE 14MG/24HR PATCH TRANSDERM SCH (09:16)
[2019-07-25] MEDS: FLUoxetine HCL 20 MG CAP PO SCH (09:16)
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
== END 2019-07-25 12:24 | disposition home or self-care (01) | DRG 885 ==
LOC: EC 11:05 → 3MHU 14:05
PROVIDERS: ADMIT Psychiatry & Neurology Psychiatry; ATTEND Psychiatry & Neurology Psychiatry
DX: F31.30 Bipolar disorder, current episode depressed, mild or moderate severity, unspecified (principal); F12.10 Cannabis abuse, uncomplicated; F17.210 Nicotine dependence, cigarettes, uncomplicated; F41.9 Anxiety disorder, unspecified; F60.3 Borderline personality disorder; Z91.5 Personal history of self-harm; A60.00 Herpesviral infection of urogenital system, unspecified; M19.90 Unspecified osteoarthritis, unspecified site; M41.9 Scoliosis, unspecified; Z79.899 Other long term (current) drug therapy; Z91.14 Patient's other noncompliance with medication regimen
CPT/HCPCS: 80053; 80061; 80178; 80306; 81025; 82075; 82248; 83036; 84443; 85025; 90686; 90732; 99284

== ENCOUNTER 2019-09-10 13:40 | Emergency (ER) | payer OTHER ==
[2019-09-10 13:45] VITALS: BP 151/91; RESP 18; TEMP 98.4
[2019-09-10] MEDS ORDERED: IPRATROPIUM-ALBUTEROL 3 ML NEB INHALATION STA (13:54)
--- NOTE | 2019-09-10 14:05 | ED ---
General Adult HPI - General Chief complaint: Upper Respiratory Infection Stated complaint: Cough/SOB Time Seen by Provider: 09/10/19 13:40 Source: patient, RN notes reviewed, old records reviewed Mode of arrival: ambulatory Limitations: no limitations - History of Present Illness Initial comments: This is a 18-year-old female presents emergency department with past past and current history of smoking. Patient states she's been coughing for 5 weeks. Patient states she's not coughing up much sputum but on occasion does. Patient states occasionally feels short of breath especially when she is coughing. Patient currently states she is not short of breath at this time. Patient denies any chest pain or palpitations. Patient denies any lightheadedness dizziness or near syncopal episode. Patient has any abdominal pain patient denies nausea vomiting diarrhea. Patient denies any history of fever or chills. - Related Data Home Medications Medication Instructions Recorded Confirmed valACYclovir [Valtrex] 500 mg PO DAILY PRN 09/10/19 09/10/19 Previous Rx's Medication Instructions Recorded ARIPiprazole IM [Abilify Maintena] 400 mg IM ONCE #1 each 07/25/19 FLUoxetine HCL [PROzac] 20 mg PO DAILY 28 Days cap 07/25/19 [place] Carbonate 600 mg PO DAILY 28 Days cap 07/25/19 Albuterol Inhaler [Ventolin Hfa 1 - 2 puff INHALATION Q6HR PRN #2 09/10/19 Inhaler] puff Allergies Allergy/AdvReac Type Severity Reaction Status Date / Time bupropion [From Wellbutrin] Allergy Severe Rash/Hives Verified 09/10/19 14:24 cephalexin [From Keflex] Allergy Severe Rash/Hives Verified 09/10/19 14:24 peach Allergy Anaphylaxis Verified 09/10/19 14:24 Review of Systems ROS Statement: Those systems with pertinent positive or pertinent negative responses have been documented in the HPI. ROS Other: All systems not noted in ROS Statement are negative. Past Medical History Past Medical History: Musculoskeletal Disorder Additional Past Medical History / Comment(s): SCOLIOSIS, herpes History of Any Multi-Drug Resistant Organisms: None Reported Past Surgical History: No Surgical Hx Reported Additional Past Surgical History / Comment(s): D & C 2018 Past Anesthesia/Blood Transfusion Reactions: No Reported Reaction Additional Past Anesthesia/Blood Transfusion Reaction / Comment(s): NO ANESTHESIA HX. Past Psychological History: ADD/ADHD, Anxiety, Bipolar, Depression Smoking Status: Current every day smoker Past Alcohol Use History: None Reported Past Drug Use History: Marijuana - Past Family History Mother Additional Family Medical History / Comment(s): pt is adopted General Exam - General Exam Comments Initial Comments: GENERAL: Patient is well-developed and well-nourished. Patient is nontoxic and well- hydrated and is in no acute distress. ENT: Neck is soft and supple. No significant lymphadenopathy is noted. Oropharynx is clear. Moist mucous membranes. Neck has full range of motion without eliciting any pain. EYES: The sclera were anicteric and conjunctiva were pink and moist. Extraocular movements were intact and pupils were equal round and reactive to light. Eyelids were unremarkable. PULMONARY: Unlabored respirations. Good breath sounds bilaterally.. Occasional wheeze CARDIOVASCULAR: There is a regular rate and rhythm without any murmurs gallops or rubs. ABDOMEN: Soft and nontender with normal bowel sounds. No palpable organomegaly was noted. There is no palpable pulsatile mass. SKIN: Skin is clear with no lesions or rashes and otherwise unremarkable. NEUROLOGIC: Patient is alert and oriented x3. Cranial nerves II through XII are grossly intact. Motor and sensory are also intact. Normal speech, volume and content. Symmetrical smile. MUSCULOSKELETAL: Normal extremities with adequate strength and full range of motion. LYMPHATICS: No significant lymphadenopathy is noted PSYCHIATRIC: Normal psychiatric evaluation. Limitations: no limitations Course Vital Signs 09/10/19 09/10/19 09/10/19 13:42 14:08 14:15 Temperature 98.4 F Pulse Rate 71 72 76 Respiratory 18 Rate Blood Pressure 151/91 O2 Sat by Pulse 99 Oximetry Medical Decision Making - Medical Decision Making Chest x-ray shows no acute abnormality. Disposition Clinical Impression: Acute upper respiratory infection Disposition: HOME SELF-CARE Condition: Good Instructions (If sedation given, give patient instructions): Upper Respiratory Infection (ED) Prescriptions: Albuterol Inhaler [Ventolin Hfa Inhaler] 1 - 2 puff INHALATION Q6HR PRN #2 puff PRN Reason: Difficulty breathing Is patient prescribed a controlled substance at d/c from ED?: No Referrals: Nonstaff,Physician [Primary Care Provider] - 1-2 days
--- NOTE | 2019-09-10 14:13 | XR ---
EXAMINATION TYPE: XR chest 2V DATE OF EXAM: 09/10/2019 COMPARISON: 01/09/2017 HISTORY: 18-year-old female difficulty breathing, cough and shortness of breath TECHNIQUE: PA and lateral views FINDINGS: The cardiomediastinal silhouette, aorta, and pulmonary vasculature are within normal limits. Hazy low er lung densities related to overlying soft tissue. Otherwise, lungs and pleural spaces are clear. IMPRESSION: No acute cardiopulmonary process.
[2019-09-10 14:16] VITALS: PULSE 76
== END 2019-09-10 14:39 | disposition home or self-care (01) ==
LOC: EC 13:40
DX: J06.9 Acute upper respiratory infection, unspecified (principal); F17.200 Nicotine dependence, unspecified, uncomplicated; Z88.1 Allergy status to other antibiotic agents; Z88.8 Allergy status to other drugs, medicaments and biological substances; Z91.018 Allergy to other foods
CPT/HCPCS: 71046; 94640; 99285

== ENCOUNTER 2020-02-09 18:16 | Emergency (ER) | payer MEDICARE, OTHER ==
[2020-02-09] MEDS ORDERED: SODIUM CHLORIDE 0.9% 1,000 ML IV ONE (19:11)
[2020-02-09] MEDS ORDERED: METOCLOPRAMIDE 5 MG/ML 2 ML VIAL IVP STA (19:11)
[2020-02-09 19:38] LABS: Appearance,Urine Clear (Clear); Bilirubin,Urine Negative (Negative); Blood,Urine Negative (Negative); Color,Urine Yellow; Glucose,Urine (UA) Negative (Negative); Ketones,Urine Negative (Negative); Leukocyte Esterase,Urine Negative (Negative); Nitrite,Urine Negative (Negative); PH, Urine 5.5 (5.0-8.0); Protein,Urine Trace (Negative); Specific Gravity,Urine 1.027 (1.001-1.035); Urobilinogen,Urine <2.0 mg/dL (<2.0)
[2020-02-09 19:38] LABS: Basophils # (A) 0.1 k/uL (0-0.2); Basophils % (A) 1 %; Eosinophils # (A) 0.3 k/uL (0-0.7); Eosinophils % (A) 3 %; HCT 41.1 % (34.0-46.0); HGB 13.6 gm/dL (11.4-16.0); Lymphocytes # (A) 3.7 k/uL (1.0-4.8); Lymphocytes % (A) 29 %; MCH 26.9 pg (25.0-35.0); MCV 81.4 fL (80.0-100.0); Mean Platelet Volume 7.1; Monocytes # (A) 0.5 k/uL (0-1.0); Monocytes % (A) 4 %; Neutrophils # (A) 7.9 k/uL (1.3-7.7); Neutrophils % (A) 62 %; Platelet Count 336 k/uL (150-450); RBC 5.05 m/uL (3.80-5.40); RDW 14.1 % (11.5-15.5); WBC 12.7 k/uL (3.8-10.6)
[2020-02-09 19:52] LABS: ALT 24 U/L (4-34); AST 36 U/L (14-36); African American GFR (CKD) >90 (>60 ml/min/1.73 sqM); Albumin 4.7 g/dL (3.5-5.0); Alkaline Phosphatase 74 U/L (38-126); Anion Gap 11 mmol/L; Blood Urea Nitrogen 15 mg/dL (7-17); Carbon Dioxide 21 mmol/L (22-30); Chloride 108 mmol/L (98-107); Glucose 135 mg/dL (74-99); Non-African American GFR(CKD) >90 (>60 ml/min/1.73 sqM); Sodium 140 mmol/L (137-145); Total Bilirubin 0.7 mg/dL (0.2-1.3); Total Protein 7.7 g/dL (6.3-8.2)
[2020-02-09 19:53] LABS: Potassium 4.9 mmol/L (3.5-5.1)
--- NOTE | 2020-02-09 20:22 | US ---
EXAMINATION TYPE: US transvaginal DATE OF EXAM: 02/09/2020 COMPARISON: NONE CLINICAL HISTORY: right adnexal pain . TECHNIQUE: Transvaginal (TV). Date of LMP: 2 weeks ago per patient EXAM MEASUREMENTS: Uterus: 7.7 x 3.3 x 4.6 cm Endometrial Stripe: 0.8 cm Right Ovary: 3.2 x 1.7 x 3.5 cm Left Ovary: 3.2 x 1.7 x 2.3 cm 1. Uterus: Anteverted wnl 2. Endometrium: wnl 3. Right Ovary: wnl 4. Left Ovary: wnl Spectral, color and waveform doppler imaging shows good arterial and venous flow within the ovaries ; there is no evidence for ovarian torsion. 5. Bilateral Adnexa: wnl 6. Posterior cul-de-sac: no free fluid IMPRESSION: Normal transvaginal pelvic sonogram. No adnexal mass or free fluid. No evidence of ovarian torsion.
--- NOTE | 2020-02-09 20:37 | CT ---
EXAMINATION TYPE: CT abdomen pelvis w con DATE OF EXAM: 02/09/2020 COMPARISON: None HISTORY: flank pain CT DLP: 1016.8 mGycm Automated exposure control for dose reduction was used. CONTRAST: Performed with IV Contrast, patient injected with 100 mL of Isovue 300. Lung bases are clear. There is no pleural effusion. Heart size is normal. There is no pericardial eff usion. Liver spleen stomach pancreas gallbladder appear normal. Gallbladder is contracted. Bile ducts are no t dilated. There is no adrenal mass. Kidneys show satisfactory contrast opacification. There is no hydronephrosi s. Ureters are not dilated. There is no retroperitoneal adenopathy. Bladder distends smoothly. There is no inguinal hernia. Uterus is anteverted. There is no free fluid in the pelvis. Appendix is steel manager ior and appears normal. There is 1 cm cyst on the right ovary. There is no mesenteric edema. There is no ascites or free air. There is no bowel obstruction. IMPRESSION: Normal CT scan of the abdomen and pelvis. Normal appendix. No renal stone or obstruction.
[2020-02-09] MEDS ORDERED: LEVOFLOXACIN 500 MG TAB PO STA (22:03)
--- NOTE | 2020-02-09 22:05 | ED ---
General Adult HPI - General Chief complaint: Nausea/Vomiting/Diarrhea Stated complaint: Kidney infection Time Seen by Provider: 02/09/20 18:35 Source: patient, RN notes reviewed, old records reviewed Mode of arrival: ambulatory Limitations: no limitations - History of Present Illness Initial comments: 19-year-old female patient with past medical history of HSV, prior coronary/Chlamydia, missed D&C in 2018 presents to ED for chief complaint of abdominal pains with suprapubic discomfort nausea vomiting diarrhea low back pain for the last 4 days. Patient reports that about 3 weeks ago she had symptoms of dysuria frequency and she was treated for a urinary tract infection with 3 days of Bactrim. Patient reports that around that time she did have unprotected sex. She does report that at the time she did test negative for HIV/last and a urine gonorrhea chlamydia. Patient reports that she is no longer having dysuria. She denies any other acute complaints. Systemic: Pt denies fatigue, fever/chills, rash. Pt denies weakness, night sweat s, weight loss. Neuro: Pt denies headache, visual disturbances, syncope or pre-syncope. HEENT: Pt denies ocular discharge or irritation, otalgia, rhinorrhea, pharyngitis or notable lymphadenopathy. Cardiopulmonary: Pt denies chest pain, SOB, heart palpitations, dyspnea on exertion. Abdominal/GI: Pt denies abdominal pain, n/v/d. : Pt denies dysuria, burning w/ urination, frequency/urgency. Denies new onset urinary or bowel incontinence. MSK: Pt denies myalgia, loss of strength or function in extremities. Neuro: Pt denies new onset weakness, paresthesias. - Related Data Home Medications Medication Instructions Recorded Confirmed valACYclovir [Valtrex] 500 mg PO DAILY PRN 09/10/19 09/10/19 Previous Rx's Medication Instructions Recorded ARIPiprazole IM patients own 400 mg IM ONCE #1 each 07/25/19 [Arturo Canales Patients Own] FLUoxetine HCL [PROzac] 20 mg PO DAILY 28 Days cap 07/25/19 [place] Carbonate 600 mg PO DAILY 28 Days cap 07/25/19 Albuterol Inhaler (Mhu) [Ventolin 1 - 2 puff INHALATION Q6HR PRN #2 09/10/19 Hfa Inhaler (Mhu)] puff Levofloxacin [Levaquin] 500 mg PO DAILY 13 Days #13 tab 02/09/20 Allergies Allergy/AdvReac Type Severity Reaction Status Date / Time bupropion [From Wellbutrin] Allergy Severe Rash/Hives Verified 02/09/20 18:25 cephalexin [From Keflex] Allergy Severe Rash/Hives Verified 02/09/20 18:25 peach Allergy Anaphylaxis Verified 02/09/20 18:25 Review of Systems ROS Statement: Those systems with pertinent positive or pertinent negative responses have been documented in the HPI. ROS Other: All systems not noted in ROS Statement are negative. Past Medical History Past Medical History: Diabetes Mellitus, Musculoskeletal Disorder Additional Past Medical History / Comment(s): SCOLIOSIS, herpes History of Any Multi-Drug Resistant Organisms: None Reported Past Surgical History: No Surgical Hx Reported Additional Past Surgical History / Comment(s): D & C 2018 Past Anesthesia/Blood Transfusion Reactions: No Reported Reaction Additional Past Anesthesia/Blood Transfusion Reaction / Comment(s): NO ANESTHESIA HX. Past Psychological History: ADD/ADHD, Anxiety, Bipolar, Depression Smoking Status: Current every day smoker Past Alcohol Use History: None Reported Past Drug Use History: Marijuana - Past Family History Mother Additional Family Medical History / Comment(s): pt is adopted General Exam - General Exam Comments Initial Comments: Constitutional: NAD, AOX3, Pt has pleasant affect. HEENT: NC/AT, trachea midline, neck supple, no lymphadenopathy. External ears appear normal, without discharge. Mucous membranes moist. Eyes PERRLA, EOM intact. There is no scleral icterus. No pallor noted. Cardiopulmonary: RRR, no murmurs, rubs or gallops, no JVD noted. Lungs CTAB in anterior and posterior cadet. No peripheral edema. Abdominal exam: Abdomen soft and non-distended. Abdomen tender to palpation in suprapubic region. Bowel sounds active in LLQ. No hepatosplenomegaly. No ecchymosis Neuro: CN II-XII grossly intact. No nuchal rigidity. MSK: Full active ROM in upper and lower extremities, 5/5 stregnth. : Pelvic exam was performed display a significant amount of cervical motion tenderness on bimanual, white discharge from cervix. Mucosa pink. Chaperoned by Kristen ROTHMAN. Limitations: no limitations Course Vital Signs 02/09/20 02/09/20 18:22 22:20 Temperature 98.1 F 97.0 F L Pulse Rate 128 H 75 Respiratory 20 19 Rate Blood Pressure 135/77 118/90 O2 Sat by Pulse 96 100 Oximetry Medical Decision Making - Medical Decision Making 19-year-old female patient to ED for nausea vomiting suprapubic discomfort. Physical exam displayed suprapubic discomfort cervical motion tenderness cervical discharge. Labs investigations revealed mild leukocytosis. HCG and urine is negative. Patient clinical presentation history and physical is consistent with pelvic inflammatory disease. Patient has a cephalosporin ALLERGY. Therefore second line agent will be utilized. Patient initiated on Levaquin. Swabs and cultures are pending. Patient follow up with primary care provider and previously established wine fermenter to ensure resolution with return precautions. Case discussed with Dr. Rojo. - Lab Data Result diagrams: 02/09/20 19:26 02/09/20 19:26 Lab Results 02/09/20 02/09/20 02/09/20 Range/Units 19:23 19:23 19:26 WBC 12.7 H (3.8-10.6) k/uL RBC 5.05 (3.80-5.40) m/uL Hgb 13.6 (11.4-16.0) gm/dL Hct 41.1 (34.0-46.0) % MCV 81.4 (80.0-100.0) fL MCH 26.9 (25.0-35.0) pg MCHC 33.0 (31.0-37.0) g/dL RDW 14.1 (11.5-15.5) % Plt Count 336 (150-450) k/uL Neutrophils % 62 % Lymphocytes % 29 % Monocytes % 4 % Eosinophils % 3 % Basophils % 1 % Neutrophils # 7.9 H (1.3-7.7) k/uL Lymphocytes # 3.7 (1.0-4.8) k/uL Monocytes # 0.5 (0-1.0) k/uL Eosinophils # 0.3 (0-0.7) k/uL Basophils # 0.1 (0-0.2) k/uL Sodium (137-145) mmol/L Potassium (3.5-5.1) mmol/L Chloride (98-107) mmol/L Carbon Dioxide (22-30) mmol/L Anion Gap mmol/L BUN (7-17) mg/dL Creatinine (0.52-1.04) mg/dL Est GFR (CKD-EPI)AfAm (>60 ml/min/1.73 sqM) Est GFR (CKD-EPI)NonAf (>60 ml/min/1.73 sqM) Glucose (74-99) mg/dL Calcium (8.4-10.2) mg/dL Total Bilirubin (0.2-1.3) mg/dL AST (14-36) U/L ALT (4-34) U/L Alkaline Phosphatase (38-126) U/L Total Protein (6.3-8.2) g/dL Albumin (3.5-5.0) g/dL Urine Color Yellow Urine Appearance Clear (Clear) Urine pH 5.5 (5.0-8.0) Ur Specific [place] 1.027 (1.001-1.035) Urine Protein Trace H (Negative) Urine Glucose (UA) Negative (Negative) Urine Ketones Negative (Negative) Urine Blood Negative (Negative) Urine Nitrite Negative (Negative) Urine Bilirubin Negative (Negative) Urine Urobilinogen <2.0 (<2.0) mg/dL Ur Leukocyte Esterase Negative (Negative) Urine HCG, Qual Not Detected (Not Detectd) Acetone, Qual (Negative) 02/09/20 Range/Units 19:26 WBC (3.8-10.6) k/uL RBC (3.80-5.40) m/uL Hgb (11.4-16.0) gm/dL Hct (34.0-46.0) % MCV (80.0-100.0) fL MCH (25.0-35.0) pg MCHC (31.0-37.0) g/dL RDW (11.5-15.5) % Plt Count (150-450) k/uL Neutrophils % % Lymphocytes % % Monocytes % % Eosinophils % % Basophils % % Neutrophils # (1.3-7.7) k/uL Lymphocytes # (1.0-4.8) k/uL Monocytes # (0-1.0) k/uL Eosinophils # (0-0.7) k/uL Basophils # (0-0.2) k/uL Sodium 140 (137-145) mmol/L Potassium 4.9 (3.5-5.1) mmol/L Chloride 108 H (98-107) mmol/L Carbon Dioxide 21 L (22-30) mmol/L Anion Gap 11 mmol/L BUN 15 (7-17) mg/dL Creatinine 0.70 (0.52-1.04) mg/dL Est GFR (CKD-EPI)AfAm >90 (>60 ml/min/1.73 sqM) Est GFR (CKD-EPI)NonAf >90 (>60 ml/min/1.73 sqM) Glucose 135 H (74-99) mg/dL Calcium 10.0 (8.4-10.2) mg/dL Total Bilirubin 0.7 (0.2-1.3) mg/dL AST 36 (14-36) U/L ALT 24 (4-34) U/L Alkaline Phosphatase 74 (38-126) U/L Total Protein 7.7 (6.3-8.2) g/dL Albumin 4.7 (3.5-5.0) g/dL Urine Color Urine Appearance (Clear) Urine pH (5.0-8.0) Ur Specific [place] (1.001-1.035) Urine Protein (Negative) Urine Glucose (UA) (Negative) Urine Ketones (Negative) Urine Blood (Negative) Urine Nitrite (Negative) Urine Bilirubin (Negative) Urine Urobilinogen (<2.0) mg/dL Ur Leukocyte Esterase (Negative) Urine HCG, Qual (Not Detectd) Acetone, Qual Negative (Negative) Disposition Clinical Impression: PID (pelvic inflammatory disease) Disposition: HOME SELF-CARE Condition: Stable Instructions (If sedation given, give patient instructions): Pelvic Inflammatory Disease (ED) Additional Instructions: Taken antibiotics as directed. Follow-up with primary care provider and previously established WEAPONS DESIGNER tomorrow. Return to ER with any worsening symptoms. Prescriptions: Levofloxacin [Levaquin] 500 mg PO DAILY 13 Days #13 tab Is patient prescribed a controlled substance at d/c from ED?: No Referrals: Huong Reaves III, MD [Primary Care Provider] - 1-2 days
[2020-02-09 22:22] VITALS: BP 118/90; PULSE 75; RESP 19; TEMP 97
== END 2020-02-09 22:22 | disposition home or self-care (01) ==
LOC: EC 18:16 → EEVIPCON 18:16 → EC 22:22
DX: N73.9 Female pelvic inflammatory disease, unspecified (principal); D72.829 Elevated white blood cell count, unspecified; F17.200 Nicotine dependence, unspecified, uncomplicated; Z88.1 Allergy status to other antibiotic agents; Z88.8 Allergy status to other drugs, medicaments and biological substances
CPT/HCPCS: 36415; 80053; 82009; 85025; 81003; 81025; 87808; 87491; 87591; 87070; 93975; 76830; 74177; 96374; 96361; 99284; J2765; Q9967

== ENCOUNTER 2021-01-12 19:01 | Emergency (ER) | payer MEDICAID, OTHER ==
--- NOTE | 2021-01-12 19:33 | ED ---
General Adult HPI - General Chief complaint: Psychiatric Symptoms Stated complaint: Suicidal Time Seen by Provider: 01/12/21 19:18 Source: patient, RN notes reviewed Mode of arrival: ambulatory Limitations: no limitations - History of Present Illness Initial comments: 20-year-old female with a past medical history of anxiety, bipolar disorder, depression presents to the emergency room for a chief complaint of suicidal ideation. Patient reports that [place] 3 [place]. Patient states she moved in with one of her friends who ultimately kicked her out. States a few days later she went to stay with another friend was started developing a cough and didn't want to get her friend's baby sick. Therefore she has been sleeping on the streets for the past 4 nights. Patient states she wants to kill herself. She does not want to sleep on the street. She denies a plan of suicide. Patient does have previous psychiatric admissions. Patient reports she is supposed to be taking medications but does not. She is unsure what to get her meds she is also taking. Patient was told she had bronchitis or pneumonia but states she has not been able to fill her prescription. She has a cough and congestion.Patient has no other complaints at this time including shortness of breath, chest pain, abdominal pain, nausea or vomiting, headache, or visual changes. - Related Data Home Medications Medication Instructions Recorded Confirmed No Known Home Medications 01/12/21 01/12/21 Allergies Allergy/AdvReac Type Severity Reaction Status Date / Time bupropion [From Wellbutrin] Allergy Severe Rash/Hives Verified 01/12/21 21:31 cephalexin [From Keflex] Allergy Severe Rash/Hives Verified 01/12/21 21:31 peach Allergy Anaphylaxis Verified 01/12/21 21:31 shellfish derived [Shrimp] Allergy Unknown Verified 01/12/21 21:31 Review of Systems ROS Statement: Those systems with pertinent positive or pertinent negative responses have been documented in the HPI. ROS Other: All systems not noted in ROS Statement are negative. Past Medical History Past Medical History: Diabetes Mellitus, Musculoskeletal Disorder Additional Past Medical History / Comment(s): SCOLIOSIS, herpes History of Any Multi-Drug Resistant Organisms: None Reported Past Surgical History: No Surgical Hx Reported Additional Past Surgical History / Comment(s): D & C 2018 Past Anesthesia/Blood Transfusion Reactions: No Reported Reaction Additional Past Anesthesia/Blood Transfusion Reaction / Comment(s): NO ANESTHESIA HX. Past Psychological History: ADD/ADHD, Anxiety, Bipolar, Depression Smoking Status: Current every day smoker Past Alcohol Use History: Occasional Past Drug Use History: Marijuana - Past Family History Mother Additional Family Medical History / Comment(s): pt is adopted General Exam Limitations: no limitations General appearance: alert, in no apparent distress Head exam: Present: atraumatic, normocephalic, normal inspection Eye exam: Present: normal appearance, PERRL, EOMI. Absent: scleral icterus, conjunctival injection, periorbital swelling ENT exam: Present: normal exam, mucous membranes moist Neck exam: Present: normal inspection, full ROM. Absent: tenderness, meningismus, lymphadenopathy Respiratory exam: Present: normal lung sounds bilaterally. Absent: respiratory distress, wheezes, rales, rhonchi, stridor Cardiovascular Exam: Present: regular rate, normal rhythm, normal heart sounds. Absent: systolic murmur, diastolic murmur, rubs, gallop, clicks GI/Abdominal exam: Present: soft, normal bowel sounds. Absent: distended, tenderness, guarding, rebound, rigid Neurological exam: Present: alert Course Vital Signs 01/12/21 01/12/21 01/12/21 19:09 21:00 23:00 Temperature 98.4 F 99.5 F Pulse Rate 114 H 108 H 96 Respiratory 16 20 16 Rate Blood Pressure 128/57 119/81 104/66 O2 Sat by Pulse 95 95 98 Oximetry Medical Decision Making - Medical Decision Making Vitals are stable. Patient is of a cough and congestion. Rotavirus is negative. Chest x-ray shows no acute cardio pulmonary process. At this time patient was medically cleared pending EPS eval. EPS did evaluate patient. They report that patient is only suicidal as she does not have a place to stay and wants to stay for the night. Affect patient does state that she just wants a place to sleep and otherwise would not be suicidal. They were able to get her a place to sleep tomorrow. Patient is comfortable with this. Denies any suicidal thoughts at this time. She will return here for any worsening symptoms. - Lab Data Lab Results 01/12/21 01/12/21 Range/Units 19:37 19:37 Urine Color Yellow Urine Appearance Cloudy H (Clear) Urine pH 5.5 (5.0-8.0) Ur Specific [place] 1.032 (1.001-1.035) Urine Protein 1+ H (Negative) Urine Glucose (UA) Trace H (Negative) Urine Ketones Trace H (Negative) Urine Blood Negative (Negative) Urine Nitrite Negative (Negative) Urine Bilirubin Negative (Negative) Urine Urobilinogen <2.0 (<2.0) mg/dL Ur Leukocyte Esterase Negative (Negative) Urine RBC 1 (0-5) /hpf Urine WBC 3 (0-5) /hpf Ur Squamous Epith Cells 7 H (0-4) /hpf Amorphous Sediment Rare H (None) /hpf Urine Bacteria Occasional H (None) /hpf Hyaline Casts 5 H (0-2) /lpf Urine Mucus Many H (None) /hpf Urine Opiates Screen Not Detected (NotDetected) Ur Oxycodone Screen Not Detected (NotDetected) Urine Methadone Screen Not Detected (NotDetected) Ur Propoxyphene Screen Not Detected (NotDetected) Ur Barbiturates Screen Not Detected (NotDetected) U Tricyclic Antidepress Not Detected (NotDetected) Ur Phencyclidine Scrn Not Detected (NotDetected) Ur Amphetamines Screen Not Detected (NotDetected) U Methamphetamines Scrn Not Detected (NotDetected) U Benzodiazepines Scrn Not Detected (NotDetected) Urine Cocaine Screen Not Detected (NotDetected) U Marijuana (THC) Screen Detected H (NotDetected) Coronavirus (PCR) Not Detected (Not Detectd) Disposition Clinical Impression: Situational depression Disposition: HOME SELF-CARE Condition: Good Instructions (If sedation given, give patient instructions): Depression (ED) Additional Instructions: Please follow-up with mobile crisis tomorrow. Return to the emergency room for any worsening symptoms. Is patient prescribed a controlled substance at d/c from ED?: No Referrals: Johnny Sánchez MD [REFERRING] - 1-2 days Time of Disposition: 23:46
--- NOTE | 2021-01-12 19:55 | XR ---
EXAMINATION TYPE: XR chest 2V DATE OF EXAM: 01/12/2021 COMPARISON: 09/10/2019 HISTORY: Cough TECHNIQUE: 2 views FINDINGS: Heart and mediastinum are normal. Lungs are clear of infiltrate. There is slight thoracic d extroscoliosis. IMPRESSION: No active cardiopulmonary disease. Normal heart. No change.
[2021-01-12 20:05] LABS: Amorphous Sediment,Urine Rare /hpf; Appearance,Urine Cloudy (Clear); Bacteria,Urine Occasional /hpf; Bilirubin,Urine Negative (Negative); Blood,Urine Negative (Negative); Color,Urine Yellow; Glucose,Urine (UA) Trace (Negative); Hyaline Casts,Urine 5 /lpf (0-2); Ketones,Urine Trace (Negative); Leukocyte Esterase,Urine Negative (Negative); Mucus,Urine Many /hpf; Nitrite,Urine Negative (Negative); PH, Urine 5.5 (5.0-8.0); Protein,Urine 1+ (Negative); RBC,Urine 1 /hpf (0-5); Specific Gravity,Urine 1.032 (1.001-1.035); Squamous Epithelial Cell,Urine 7 /hpf (0-4); Urobilinogen,Urine <2.0 mg/dL (<2.0); WBC,Urine 3 /hpf (0-5)
[2021-01-12 20:15] LABS: Amphetamine Screen,Urine Not Detected (NotDetected); Barbiturate Screen,Urine Not Detected (NotDetected); Benzodiazepines Screen,Urine Not Detected (NotDetected); Cocaine Screen,Urine Not Detected (NotDetected); Methadone Screen, Urine Not Detected (NotDetected); Opiate Screen,Urine Not Detected (NotDetected); Oxycodone Screen, Urine Not Detected (NotDetected); Phencyclidine Screen,Urine Not Detected (NotDetected); Tricyclic Antidepressant,Urine Not Detected (NotDetected); Urn Cannabinoid Scrn Detected (NotDetected)
[2021-01-12 23:03] VITALS: TEMP 99.5
[2021-01-13 00:22] VITALS: BP 110/67; PULSE 75; RESP 18
== END 2021-01-13 00:22 | disposition home or self-care (01) ==
LOC: EC 19:01
DX: F43.21 Adjustment disorder with depressed mood (principal); R45.851 Suicidal ideations; R05 Cough; R09.89 Other specified symptoms and signs involving the circulatory and respiratory systems; E11.9 Type 2 diabetes mellitus without complications; F41.9 Anxiety disorder, unspecified; F31.9 Bipolar disorder, unspecified; F17.200 Nicotine dependence, unspecified, uncomplicated; F12.90 Cannabis use, unspecified, uncomplicated; Z20.822 Contact with and (suspected) exposure to COVID-19; Z88.1 Allergy status to other antibiotic agents
CPT/HCPCS: 71046; 80306; 81001; 82075; 87635; 99285

== ENCOUNTER 2021-01-19 16:43 | Inpatient (IN) | payer MEDICARE, OTHER ==
--- NOTE | 2021-01-19 18:05 | ED ---
General Adult HPI - General Chief complaint: Psychiatric Symptoms Stated complaint: pickup order Time Seen by Provider: 01/19/21 17:37 Source: patient Mode of arrival: ambulatory Limitations: no limitations - History of Present Illness Initial comments: Dictation was produced using Dajie dictation software. please excuse any grammatical, word or spelling errors. Chief Complaint: 20-year-old female brought in for pickup order History of Present Illness: 20-year-old female with history of psychiatric disease. Patient was seen here last week for psychiatric illness. She was discharged and told to follow up with [facility]. She has not been going to her appointments or taking her medications. The water was placed by [facility] due to nonc ompliance with outpatient psych follow-up. Patient is suicidal or homicidal ideation. She is currently driven in her car. She states her medicines are with her mother in [place]. Patient thinks she might have a urinary tract infection The ROS documented in this emergency department record has been reviewed and confirmed by me. Those systems with pertinent positive or negative responses have been documented in the HPI. All other systems are other negative and/or noncontributory. PHYSICAL EXAM: General Impression: Alert and oriented x3, not in acute distress HEENT: Normocephalic atraumatic, extra-ocular movements intact, pupils equal and reactive to light bilaterally, mucous membranes moist. Cardiovascular: Heart regular rate and rhythm Chest: Able to complete full sentences, no retractions, no tachypnea Abdomen: abdomen soft, non-tender, non-distended, no organomegaly Musculoskeletal: Pulses present and equal in all extremities, no peripheral edema Motor: no focal deficits noted Neurological: CN II-XII grossly intact, no focal motor or sensory deficits noted Skin: Intact with no visualized rashes Psych: Normal affect and mood ED course: 20-year-old female brought in by law enforcement after pickup order filled by [facility]. Vital signs upon arrival are within acceptable limits. Physical examination benign. Patient complained that she might have a urinary tract infe ction. Patient medically cleared for EPS evaluation. Patient evaluated by EPS and will be admitted to inpatient psych. Certification documentation was completed. Urinalysis shows urinary tract infection. Patient started on Macrobid. - Related Data Home Medications Medication Instructions Recorded Confirmed No Known Home Medications 01/12/21 01/19/21 Allergies Allergy/AdvReac Type Severity Reaction Status Date / Time bupropion [From Wellbutrin] Allergy Severe Rash/Hives Verified 01/19/21 18:09 cephalexin [From Keflex] Allergy Severe Rash/Hives Verified 01/19/21 18:09 peach Allergy Anaphylaxis Verified 01/19/21 18:09 shellfish derived [Shrimp] Allergy Unknown Verified 01/19/21 18:09 Review of Systems ROS Statement: Those systems with pertinent positive or pertinent negative responses have been documented in the HPI. ROS Other: All systems not noted in ROS Statement are negative. Past Medical History Past Medical History: Diabetes Mellitus, Musculoskeletal Disorder Additional Past Medical History / Comment(s): SCOLIOSIS, herpes History of Any Multi-Drug Resistant Organisms: None Reported Past Surgical History: No Surgical Hx Reported Additional Past Surgical History / Comment(s): D & C 2018 Past Anesthesia/Blood Transfusion Reactions: No Reported Reaction Additional Past Anesthesia/Blood Transfusion Reaction / Comment(s): NO ANESTHESIA HX. Past Psychological History: ADD/ADHD, Anxiety, Bipolar, Depression Smoking Status: Current every day smoker Past Alcohol Use History: Occasional Past Drug Use History: Marijuana - Past Family History Mother Additional Family Medical History / Comment(s): pt is adopted General Exam Limitations: no limitations Course Vital Signs 01/19/21 17:01 Temperature 98.2 F Pulse Rate 76 Respiratory 16 Rate O2 Sat by Pulse 98 Oximetry Medical Decision Making - Lab Data Lab Results 01/19/21 01/19/21 Range/Units 18:11 18:11 Urine Color Yellow Urine Appearance Cloudy H (Clear) Urine pH 5.5 (5.0-8.0) Ur Specific [place] 1.031 (1.001-1.035) Urine Protein 1+ H (Negative) Urine Glucose (UA) Trace H (Negative) Urine Ketones Negative (Negative) Urine Blood Moderate H (Negative) Urine Nitrite Negative (Negative) Urine Bilirubin Negative (Negative) Urine Urobilinogen <2.0 (<2.0) mg/dL Ur Leukocyte Esterase Large H (Negative) Urine RBC 19 H (0-5) /hpf Urine WBC 100 H (0-5) /hpf Ur Squamous Epith Cells 6 H (0-4) /hpf Hyaline Casts 1 (0-2) /lpf Urine Mucus Few H (None) /hpf Urine HCG, Qual Not Detected (Not Detectd) Disposition Clinical Impression: Psychiatric care, UTI (urinary tract infection) Disposition: ADMITTED IP TO THIS HOSP Condition: Fair Referrals: None,Stated [Primary Care Provider] - 1-2 days
[2021-01-19 18:19] LABS: Appearance,Urine Cloudy (Clear); Bilirubin,Urine Negative (Negative); Blood,Urine Moderate (Negative); Color,Urine Yellow; Glucose,Urine (UA) Trace (Negative); Hyaline Casts,Urine 1 /lpf (0-2); Ketones,Urine Negative (Negative); Leukocyte Esterase,Urine Large (Negative); Mucus,Urine Few /hpf; Nitrite,Urine Negative (Negative); PH, Urine 5.5 (5.0-8.0); Protein,Urine 1+ (Negative); RBC,Urine 19 /hpf (0-5); Specific Gravity,Urine 1.031 (1.001-1.035); Squamous Epithelial Cell,Urine 6 /hpf (0-4); Urobilinogen,Urine <2.0 mg/dL (<2.0); WBC,Urine 100 /hpf (0-5)
[2021-01-19 21:07] VITALS: RESP 18
[2021-01-19] MEDS: NITROFURANTOIN MONOHYD/M-CRYST 100 MG CAP PO SCH (21:44)
[2021-01-19] MEDS ORDERED: MAG HYDROX/AL HYDROX/SIMETH 30 ML CUP PO PRN (23:29)
[2021-01-19] MEDS ORDERED: ACETAMINOPHEN TAB 325 MG TAB PO PRN (23:29)
[2021-01-19] MEDS ORDERED: MAGNESIUM HYDROXIDE 2,400 MG/10 ML CUP PO PRN (23:29)
[2021-01-19] MEDS ORDERED: LORazepam 2 MG/ML INJ IM PRN (23:30)
[2021-01-19] MEDS ORDERED: HALOPERIDOL LACTATE 5 MG/ML 1 ML VIAL IM PRN (23:30)
[2021-01-19] MEDS ORDERED: haloperidoL 5 MG TAB PO PRN (23:30)
[2021-01-20 00:17] LABS: Amphetamine Screen,Urine Not Detected (NotDetected); Barbiturate Screen,Urine Not Detected (NotDetected); Benzodiazepines Screen,Urine Not Detected (NotDetected); Cocaine Screen,Urine Not Detected (NotDetected); Methadone Screen, Urine Not Detected (NotDetected); Opiate Screen,Urine Not Detected (NotDetected); Oxycodone Screen, Urine Not Detected (NotDetected); Phencyclidine Screen,Urine Not Detected (NotDetected); Tricyclic Antidepressant,Urine Not Detected (NotDetected); Urn Cannabinoid Scrn Detected (NotDetected)
[2021-01-20 01:42] VITALS: BP 121/78; PULSE 97; TEMP 98.4
[2021-01-20 06:26] LABS: Basophils % (A) 0 %; Eosinophils # (A) 0.2 k/uL (0-0.7); Eosinophils % (A) 2 %; HCT 41.9 % (34.0-46.0); HGB 13.7 gm/dL (11.4-16.0); Lymphocytes # (A) 3.5 k/uL (1.0-4.8); Lymphocytes % (A) 35 %; MCHC 32.6 g/dL (31.0-37.0); MCV 82.8 fL (80.0-100.0); Mean Platelet Volume 7.4; Monocytes # (A) 0.5 k/uL (0-1.0); Monocytes % (A) 5 %; Neutrophils # (A) 5.7 k/uL (1.3-7.7); Neutrophils % (A) 56 %; Platelet Count 345 k/uL (150-450); RBC 5.06 m/uL (3.80-5.40); RDW 13.5 % (11.5-15.5); WBC 10.2 k/uL (3.8-10.6)
[2021-01-20 06:42] LABS: ALT 22 U/L (4-34); AST 18 U/L (14-36); African American GFR (CKD) >90 (>60 ml/min/1.73 sqM); Albumin 4.1 g/dL (3.5-5.0); Alkaline Phosphatase 70 U/L (38-126); Anion Gap 9 mmol/L; Blood Urea Nitrogen 15 mg/dL (7-17); Calcium 9.9 mg/dL (8.4-10.2); Carbon Dioxide 25 mmol/L (22-30); Chloride 106 mmol/L (98-107); Glucose 163 mg/dL (74-99); Non-African American GFR(CKD) >90 (>60 ml/min/1.73 sqM); Potassium 4.1 mmol/L (3.5-5.1); Sodium 140 mmol/L (137-145); Total Bilirubin 0.6 mg/dL (0.2-1.3); Total Protein 6.6 g/dL (6.3-8.2)
[2021-01-20] MEDS: NICOTINE 14MG/24HR PATCH TRANSDERM SCH (07:50)
[2021-01-20] MEDS: NITROFURANTOIN MONOHYD/M-CRYST 100 MG CAP PO SCH ×2 (07:50→20:12)
--- NOTE | 2021-01-20 11:01 | P.HP ---
Psychiatric H&P - . H&P Date: 01/20/21 History & Physical: Allergies Allergy/AdvReac Type Severity Reaction Status Date / Time bupropion From Wellbutrin Allergy Severe Rash/Hives Verified 01/19/21 18:09 cephalexin From Keflex Allergy Severe Rash/Hives Verified 01/19/21 18:09 peach Allergy Anaphylaxis Verified 01/19/21 18:09 shellfish derived Shrimp Allergy Unknown Verified 01/19/21 18:09 Vital Signs Temp 98.4 F 01/20/21 01:40 Pulse 97 01/20/21 01:40 Resp 18 01/20/21 01:40 BP 121/78 01/20/21 01:40 Pulse Ox 98 01/19/21 23:35 Intake & Output 01/19/21 01/20/21 01/20/21 18:59 06:59 18:59 Weight 72.575 kg Laboratory Last Values WBC 10.2 k/uL (3.8-10.6) 01/20/21 06:04 RBC 5.06 m/uL (3.80-5.40) 01/20/21 06:04 Hgb 13.7 gm/dL (11.4-16.0) 01/20/21 06:04 Hct 41.9 % (34.0-46.0) 01/20/21 06:04 MCV 82.8 fL (80.0-100.0) 01/20/21 06:04 MCH 27.0 pg (25.0-35.0) 01/20/21 06:04 MCHC 32.6 g/dL (31.0-37.0) 01/20/21 06:04 RDW 13.5 % (11.5-15.5) 01/20/21 06:04 Plt Count 345 k/uL (150-450) 01/20/21 06:04 MPV 7.4 01/20/21 06:04 Neutrophils % 56 % 01/20/21 06:04 Lymphocytes % 35 % 01/20/21 06:04 Monocytes % 5 % 01/20/21 06:04 Eosinophils % 2 % 01/20/21 06:04 Basophils % 0 % 01/20/21 06:04 Neutrophils # 5.7 k/uL (1.3-7.7) 01/20/21 06:04 Lymphocytes # 3.5 k/uL (1.0-4.8) 01/20/21 06:04 Monocytes # 0.5 k/uL (0-1.0) 01/20/21 06:04 Eosinophils # 0.2 k/uL (0-0.7) 01/20/21 06:04 Basophils # 0.0 k/uL (0-0.2) 01/20/21 06:04 Sodium 140 mmol/L (137-145) 01/20/21 06:04 Potassium 4.1 mmol/L (3.5-5.1) 01/20/21 06:04 Chloride 106 mmol/L (98-107) 01/20/21 06:04 Carbon Dioxide 25 mmol/L (22-30) 01/20/21 06:04 Anion Gap 9 mmol/L 01/20/21 06:04 BUN 15 mg/dL (7-17) 01/20/21 06:04 Creatinine 0.71 mg/dL (0.52-1.04) 01/20/21 06:04 Est GFR (CKD-EPI)AfAm >90 (>60 ml/min/1.73 sqM) 01/20/21 06:04 Est GFR (CKD-EPI)NonAf >90 (>60 ml/min/1.73 sqM) 01/20/21 06:04 Glucose 163 mg/dL (74-99) H 01/20/21 06:04 Calcium 9.9 mg/dL (8.4-10.2) 01/20/21 06:04 Total Bilirubin 0.6 mg/dL (0.2-1.3) 01/20/21 06:04 AST 18 U/L (14-36) 01/20/21 06:04 ALT 22 U/L (4-34) 01/20/21 06:04 Alkaline Phosphatase 70 U/L (38-126) 01/20/21 06:04 Total Protein 6.6 g/dL (6.3-8.2) 01/20/21 06:04 Albumin 4.1 g/dL (3.5-5.0) 01/20/21 06:04 TSH 0.442 mIU/L (0.465-4.680) L 01/20/21 06:04 Urine Color Yellow 01/19/21 18:11 Urine Appearance Cloudy (Clear) H 01/19/21 18:11 Urine pH 5.5 (5.0-8.0) 01/19/21 18:11 Ur Specific Cardale 1.031 (1.001-1.035) 01/19/21 18:11 Urine Protein 1+ (Negative) H 01/19/21 18:11 Urine Glucose (UA) Trace (Negative) H 01/19/21 18:11 Urine Ketones Negative (Negative) 01/19/21 18:11 Urine Blood Moderate (Negative) H 01/19/21 18:11 Urine Nitrite Negative (Negative) 01/19/21 18:11 Urine Bilirubin Negative (Negative) 01/19/21 18:11 Urine Urobilinogen <2.0 mg/dL (<2.0) 01/19/21 18:11 Ur Leukocyte Esterase Large (Negative) H 01/19/21 18:11 Urine RBC 19 /hpf (0-5) H 01/19/21 18:11 Urine WBC 100 /hpf (0-5) H 01/19/21 18:11 Ur Squamous Epith Cells 6 /hpf (0-4) H 01/19/21 18:11 Hyaline Casts 1 /lpf (0-2) 01/19/21 18:11 Urine Mucus Few /hpf (None) H 01/19/21 18:11 Urine HCG, Qual Not Detected (Not Detectd) 01/19/21 18:11 Urine Opiates Screen Not Detected (NotDetected) 01/19/21 18:11 Ur Oxycodone Screen Not Detected (NotDetected) 01/19/21 18:11 Urine Methadone Screen Not Detected (NotDetected) 01/19/21 18:11 Ur Propoxyphene Screen Not Detected (NotDetected) 01/19/21 18:11 Ur Barbiturates Screen Not Detected (NotDetected) 01/19/21 18:11 U Tricyclic Antidepress Not Detected (NotDetected) 01/19/21 18:11 Ur Phencyclidine Scrn Not Detected (NotDetected) 01/19/21 18:11 Ur Amphetamines Screen Not Detected (NotDetected) 01/19/21 18:11 U Methamphetamines Scrn Not Detected (NotDetected) 01/19/21 18:11 U Benzodiazepines Scrn Not Detected (NotDetected) 01/19/21 18:11 Urine Cocaine Screen Not Detected (NotDetected) 01/19/21 18:11 U Marijuana (THC) Screen Detected (NotDetected) H 01/19/21 18:11 01/20/21 10:41 IDENTIFYING DATA: Patient is a 20-year-old female who currently is homeless and has a history of bipolar disorder and borderline personality disorder. HPI: Patient presented to the hospital yesterday on a pickup order. Patient was petitioned by her public guardian who claims that patient has not been taking her medications or going to any of her follow-up appointments with [facility]. Patient was seen today by com writer and agreed to speak to com writer in the office. Patient appeared to have poor hygiene and grooming. She appeared to be fairly impulsive and very upset. She was tearful during the interview and claims that "I don't know why they brought me here" and felt that it she should be discharged. She claims that she is up here from [place] for the past 3 weeks and was staying with friends however got kicked out and was homeless. She states that she was staying in a car and one of her male friends was taking care of her and feeding her. She states that she was doing well before coming in the hospital and did not need medications. She states that she hasn't taken any meds since November. She states that she is not having any mood swings and is denying any depression. She claims that she was "tricked into coming here" and claims that the public guardian was supposed to offer her a place to go and stay however brought her to the hospital instead. She claims that she is sleeping fairly and has a fair appetite. Patient denies any flight of ideas racing thoughts and increased in goal directed behavior. Patient admits to using marijuana one blunted day and also smoking cigarettes. Patient denies any other alcohol or recreational substance use. PAST PSYCHIATRIC HISTORY: Patient states that she has a history of bipolar disorder and borderline personality disorder along with anxiety. She states that she was following up with [facility]. Patient used to be on Abilify Maintenna, lithium and Prozac. Patient admitted to multiple suicide attempts in the past. Patient also admitted to multiple psychiatric hospitalizations her last being on the mental health unit \\was in [place] in May 2020 and last admitted to the mental health unit in June 2019. PMH: Genital herpes ALLERGIES: as per EMR CHEMICAL DEPENDENCY HISTORY: as per HPI FAMILY PSYCHIATRIC/SUBSTANCE USE HISTORY: Patient claims that she does not know her biological family as she is adopted SOCIAL HISTORY: And she states that she is born and raised in [place] and was adopted at the age of 1. She claims that she obtained her GED and is currently collecting Social Security. She denies being and denies any kids. She is currently homeless. MENTAL STATUS EXAM: General Appearance: Patient appears to be stated age is alert, impulsive tearful and labile. Patient has long hair, marginal hygiene and grooming wearing hospital gown. Behavior: Patient is seated without any agitated behavior. Tearful at times. Speech: Patient's speech is fluent and nonpressured. Mood/Affect: Patient reports their mood is "okay", affect is incongruent and labile. Suicidality/Homicidality: Patient denies having any suicidal or homicidal ideation intent or plan. Perceptions: Patient denies any visual hallucinations. Denying any auditory hallucinations. Though content/process: Patient is intrusive, illogical, Focused on discharge Memory and concentration: AOX3, grossly intact for the purposes of this session. Can spell "WORLD" backwards Judgment and insight: poor STRENGTHS/WEAKNESSES: strength is that patient is resilient and has a place to live, weaknesses that patient is impulsive and has poor judgment and noncompliant with medications. INTELLECT: average IMPRESSIONS: Bipolar disorder, currently depressed Borderline personality disorder Cannabis abuse Nicotine dependence PLAN: -Patient is admitted under involuntary status to MHU for stabilization of psychiatric symptoms and safety. Patient signed medication consent and is placed in patient's chart. A second certification will be completed and filed for court. -Medications : Will start patient on lithium 300 mg bid for mood stabilization/suicidality. We'll start Prozac 20 mg daily for mood. Melatonin 5 mg daily prn at bedtime for sleep. -Haldol and Ativan PRN for agitation/aggression -Patient was counselled on substance abuse and desired to cut back on use -Patient was informed of the risks, benefits and side effects of the medication and patient verbally consented to taking the medications. Patient signed med consent form and was placed in chart. -NRT - nicotine patch -Internal medicine consult for physical and history. -SW on board for discharge planning. central supply worker to reach out to mother to inquire about patient's housing. Patient is already established with [facility] for psychiatric follow-up. Encouraged group participation for coping skills and distress tolerance.Will await deferral and court date. 01/20/21 11:11
[2021-01-20] MEDS: FLUoxetine HCL 20 MG CAP PO SCH (12:01)
[2021-01-20] MEDS: LITHIUM CARBONATE 300 MG CAP PO SCH ×2 (12:01→20:13)
[2021-01-20] MEDS: LORazepam 1 MG TAB PO PRN (12:06)
[2021-01-20 14:51] LABS: Chol/HDL Ratio 5.73; Cholesterol 126 mg/dL (0-200); LDL Cholesterol,Calculated 69.6 mg/dL (0.0-131.0)
[2021-01-20 17:38] LABS: Glucose,Whole Blood 157 mg/dL (75-99)
[2021-01-20] MEDS: MELATONIN 5 MG TABLET PO PRN (21:24)
[2021-01-21 08:10] LABS: Glucose,Whole Blood 152 mg/dL (75-99)
[2021-01-21] MEDS: FLUoxetine HCL 20 MG CAP PO SCH ×2 (09:25→09:31)
[2021-01-21] MEDS: NITROFURANTOIN MONOHYD/M-CRYST 100 MG CAP PO SCH ×3 (09:25→20:46)
[2021-01-21] MEDS: LITHIUM CARBONATE 300 MG CAP PO SCH ×3 (09:25→20:46)
[2021-01-21] MEDS: NICOTINE 14MG/24HR PATCH TRANSDERM SCH ×2 (09:25→09:31)
--- NOTE | 2021-01-21 10:02 | P.PN ---
Progress Note - Text Progress Note Date: 01/21/21 Interval History: Patient was seen laying in her bed this morning and was approached by race and sports book writer for today's follow-up evaluation. The patient refused to get up out of bed and states that "I don't talk to you". She covered her face with the blankets and turned away from race and sports book writer and continued to not answer any questions and refused to get out of her bed today. She was also noted to have received Haldol prn last night and did not take her medications this morning. Mental Status Exam: General Appearance: Patient appears to be overweight, stated age is alert, difficult to engage with. Wearing a red hair wig. Behavior: Patient is calmly laying in her bed without any agitated behavior. U ncooperative. Speech: Patient's speech is fluent and nonpressured. Mood/Affect: Unable to assess Suicidality/Homicidality: Unable to assess Perceptions: Unable to assess Though content/process: [place], poverty of content. Memory and concentration: Unable to assess Judgment and insight: poor Assessment Bipolar disorder, currently depressed Borderline personality disorder Cannabis abuse Nicotine dependence Plan: -Patient continues to meet criteria for inpatient psychiatric admission for symptom stabilization and safety. Patient has signed medication consent and was placed in patient's chart. -Medications: Continue lithium 300 mg twice a day for mood stabilization/suicidality. Prozac 20 mg daily for mood/anxiety. Melatonin 5 mg daily at bedtime when necessary for sleep. -When necessary Ativan and Haldol for agitation/aggression. -NRT - nicotine patch - on board for discharge planning. Encouraged the patient to participate in milieu. Currently awaiting deferral with commonwealth attorney and court date. needleworker to reach out to mother to inquire about patient's housing. Patient is already established with [facility] for psychiatric follow-up
[2021-01-21 13:00] LABS: Glucose,Whole Blood 169 mg/dL (75-99)
[2021-01-21] MEDS ORDERED: guaiFENesin-Coden 100-10MG/5ML 10 ML CUP PO PRN (13:21)
--- NOTE | 2021-01-21 15:50 | P.HPMEDMHU ---
History of Present Illness H&P Date: 01/21/21 History of Presenting Illness: Patient is a 20-year-old female with a past medical history of type II [id number] diabetes mellitus, bipolar disorder, and borderline personality disorder. She is currently admitted to the inpatient mental health unit under psychiatric team for stabilization of her psychiatric symptoms and safety. We have been consulted to follow patient throughout admission for continued medical management. Patient was seen and fully evaluated in the mental health unit. She presented with a disheveled appearance and withdrawn affect. Patient reports a history of diabetes and states that she takes metformin 500 mg twice daily but has not had since admission. Patient denies having any headache, lightheadedness, dizziness, chest pain or palpitations, shortness of breath, abdominal pain, nausea, vomiting, changes in appetite, difficulties with or changes in urinary or bowel function, reports normal menstrual cycles, and denies having any visual/tactile/auditory hallucinations. Review of systems: Pertinent positives and negatives as discussed in HPI, a complete review of systems was performed and all other systems are negative. Physical exam: Vital signs reviewed and stable. General: Nontoxic, no distress and appears stated age. Disheveled appearance Derm: Skin warm and dry, normal coloration for ethnicity. Head: Atraumatic, normocephalic and symmetric. Eyes: no lid lag, and anicteric sclera Mouth: no lip lesions, mucus membranes moist Cardiovascular: regular rate and rhythm with normal S1S2, no murmur, positive posterior tibial pulses bilaterally, and cap refill < 2 seconds. Lungs: Respirations even, regular, and unlabored on room air. Lungs CTA bilaterally, no rhonchi, no rales, no wheezing, and no accessory muscle usage. Abdominal: soft, nontender to palpation, no guarding, no appreciable organomegal y Ext: ROM intact. No gross muscle atrophy, no edema, no contractures Neuro: Speech clear, face symmetrical, GCS 15 with no noted focal neuro deficits Psych: Alert and oriented to person, place, time, and situation. Disheveled appearance and withdrawn affect. Assessment and Plan of Care: Type II atm-usizpzw-ukokftaqw diabetes mellitus -Hemoglobin A1c 8.0% -Patient placed on glycemic protocol with NovoLog sliding scale. -Resume reported home medication, metformin. UTI -Urinalysis positive for protein, blood, leukocytes, and 100 WBCs. Possibly contaminated with squamous cells of 6. -Continue home Macrobid 100 mg twice daily 3 days Nicotine dependence -Patient to receive encouragement and education on the importance of smoking cessation and the risks of continued use. -Nicotine patch Cannabis abuse -Patient to receive encouragement and education on the importance of cessation and risks of continued cannabinoid abuse. Bipolar disorder and borderline personality disorder -Management per primary psychiatric team. Thank you for allowing us to participate in the care of this pleasant patient. Do not hesitate to contact us with questions. RN to notify us with any further needs. Someone can be reached from the [facility] hospitalist group all hours of the day at [phone] or via [employer]. Past Medical History Past Medical History: Diabetes Mellitus, Musculoskeletal Disorder Additional Past Medical History / Comment(s): SCOLIOSIS, herpes History of Any Multi-Drug Resistant Organisms: None Reported Past Surgical History: No Surgical Hx Reported Additional Past Surgical History / Comment(s): D & C 2018 Past Anesthesia/Blood Transfusion Reactions: No Reported Reaction Additional Past Anesthesia/Blood Transfusion Reaction / Comment(s): NO ANESTHESIA HX. Past Psychological History: ADD/ADHD, Anxiety, Bipolar, Depression Smoking Status: Current every day smoker Past Alcohol Use History: Occasional Past Drug Use History: Marijuana - Past Family History Mother Additional Family Medical History / Comment(s): pt is adopted Medications and Allergies Home Medications Medication Instructions Recorded Confirmed Type No Known Home Medications 01/12/21 01/19/21 History Allergies Allergy/AdvReac Type Severity Reaction Status Date / Time bupropion [From Wellbutrin] Allergy Severe Rash/Hives Verified 01/19/21 18:09 cephalexin [From Keflex] Allergy Severe Rash/Hives Verified 01/19/21 18:09 peach Allergy Anaphylaxis Verified 01/19/21 18:09 shellfish derived [Shrimp] Allergy Unknown Verified 01/19/21 18:09 Cranial Nerve Examination - Cranial Nerves Cranial Nerve II- Optic: Intact Cranial Nerve III- Oculomotor: Intact Cranial Nerve IV- Trochlear: Intact Cranial Nerve V- Trigeminal: Intact Cranial Nerve - Abducens: Intact Cranial Nerve VII- Facial: Intact Cranial Nerve VIII- Auditory: Intact Cranial Nerve IX- Glossopharyngeal: Intact Cranial Nerve X- Vagus: Intact Cranial Nerve XI- Accessory: Intact Cranial Nerve XII- Hypoglossal: Intact Results CBC & Chem 7: 01/20/21 06:04 01/20/21 06:04 Labs: Abnormal Lab Results - Last 24 Hours (Table) 01/20/21 01/21/21 01/21/21 Range/Units 17:36 08:07 12:51 POC Glucose (mg/dL) 157 H 152 H 169 H (75-99) mg/dL Microbiology - Last 24 Hours (Table) 01/19/21 18:11 Urine Culture - Final Urine,Voided
[2021-01-21 17:48] LABS: Glucose,Whole Blood 121 mg/dL (75-99)
[2021-01-21] MEDS: metFORMIN 500 MG TAB PO SCH (18:13)
[2021-01-21] MEDS: INSULIN ASPART (NovoLOG) 100 UNIT/ML VIAL SQ SCH (18:13)
[2021-01-21 20:14] LABS: Glucose,Whole Blood 170 mg/dL (75-99)
[2021-01-21] MEDS: MELATONIN 5 MG TABLET PO PRN (22:40)
[2021-01-21] MEDS: LORazepam 1 MG TAB PO PRN (23:43)
[2021-01-22 07:48] LABS: Glucose,Whole Blood 132 mg/dL (75-99)
[2021-01-22] MEDS: INSULIN ASPART (NovoLOG) 100 UNIT/ML VIAL SQ SCH ×3 (08:25→18:08)
[2021-01-22] MEDS: NITROFURANTOIN MONOHYD/M-CRYST 100 MG CAP PO SCH ×2 (08:29→20:22)
[2021-01-22] MEDS: NICOTINE 14MG/24HR PATCH TRANSDERM SCH (08:29)
[2021-01-22] MEDS: FLUoxetine HCL 20 MG CAP PO SCH (08:29)
[2021-01-22] MEDS: LITHIUM CARBONATE 300 MG CAP PO SCH ×2 (08:29→20:23)
[2021-01-22] MEDS: metFORMIN 500 MG TAB PO SCH ×2 (08:29→18:09)
--- NOTE | 2021-01-22 09:45 | P.PN ---
Progress Note - Text Progress Note Date: 01/22/21 Interval History: Patient was seen wandering the hallways this morning and was agreeable to speak to typewriter operator automatic in the office today. She states that she is doing better today in terms of her mood and claims he is more "stable". She states that she has been taking her medications as prescribed and spoke with her district attorney yesterday and referred. She states that she has been tried to go to groups and participated less she can. She states that she needs to take the Haldol and Ativan last night to sleep. She claims that she had a rough time sleeping however was agreeable to take Benadryl tonight. She states that she has a fair appetite. She claims that she would like to go to a hotel or motel once she is discharged. Patient currently denies any suicidal or homicidal ideations intent or plan and denies any auditory or visual hallucinations. She denies any medication side effects at this time. Mental Status Exam: General Appearance: Patient appears to be overweight, stated age is alert, more cooperative today. Wearing a red hair wig. Behavior: Patient is calmly laying in her bed without any agitated behavior. more cooperative. Speech: Patient's speech is fluent and nonpressured. Mood/Affect: She claims that her mood is "a little better" affect is appropriate. Suicidality/Homicidality: Denies Perceptions: Denies any auditory or visual hallucinations. Though content/process: Goal oriented, logical. Memory and concentration: Alert and oriented 3. Fair concentration. Fair memory recall. Judgment and insight: Improving Assessment Bipolar disorder, currently depressed Borderline personality disorder Cannabis abuse Nicotine dependence Plan: -Patient continues to meet criteria for inpatient psychiatric admission for symptom stabilization and safety. Patient has signed medication consent and was placed in patient's chart. -Medications: Continue lithium 300 mg twice a day for mood stabilization/suicidality, Prozac 20 mg daily for mood/anxiety. Melatonin 5 mg daily at bedtime when necessary for sleep. I added Benadryl 50 mg daily at bedtime for insomnia. -When necessary Ativan and Haldol for agitation/aggression. -NRT - nicotine patch -SW on board for discharge planning. Encouraged the patient to participate in milieu. Patient deferred with her district attorney on 01/21/21 and is agreeable to treatment. Likely discharge tomorrow, snf versus hotel/motel. With [facility] follow-up.
[2021-01-22 12:42] LABS: Glucose,Whole Blood 103 mg/dL (75-99)
[2021-01-22 17:58] LABS: Glucose,Whole Blood 135 mg/dL (75-99)
[2021-01-22 19:39] LABS: Glucose,Whole Blood 125 mg/dL (75-99)
[2021-01-22] MEDS ORDERED: diphenhydrAMINE 50 MG CAP PO SCH (21:00)
[2021-01-23 08:21] LABS: Glucose,Whole Blood 161 mg/dL (75-99)
[2021-01-23] MEDS: NICOTINE 14MG/24HR PATCH TRANSDERM SCH (08:26)
[2021-01-23] MEDS: INSULIN ASPART (NovoLOG) 100 UNIT/ML VIAL SQ SCH ×2 (08:27→13:41)
[2021-01-23] MEDS: metFORMIN 500 MG TAB PO SCH (08:28)
[2021-01-23] MEDS: LITHIUM CARBONATE 300 MG CAP PO SCH (08:28)
[2021-01-23] MEDS: FLUoxetine HCL 20 MG CAP PO SCH (08:28)
--- NOTE | 2021-01-23 11:24 | P.DS ---
Providers Date of admission: 01/19/21 22:54 Expected date of discharge: 01/23/21 Attending physician: Peter Granados MD Consults: 01/19/21 23:29 Consult Physician Routine Consulting Provider: Lyle Desir Consult Reason/Comments: H&P and medical Do you want consulting provider notified?: Yes Primary care physician: Stated None - Discharge Diagnosis(es) (1) Bipolar disorder current episode depressed Current Visit: Yes Status: Acute Priority: High (2) Borderline personality disorder Current Visit: Yes Status: Acute Priority: Medium (3) Cannabis abuse Current Visit: Yes Status: Acute Priority: Medium (4) Nicotine dependence Current Visit: Yes Status: Acute Priority: Low Hospital Course: Admission HPI: Admission note was completed by junior underwriter "Patient is a 20-year-old female who currently is homeless and has a history of bipolar disorder and borderline personality disorder. Patient presented to the hospital yesterday on a pickup order. Patient was petitioned by her public guardian who claims that patient has not been taking her medications or going to any of her follow-up appointments with [facility]. Patient was seen today by junior underwriter and agreed to speak to junior underwriter in the office. Patient appeared to have poor hygiene and grooming. She appeared to be fairly impulsive and very upset. She was tearful during the interview and claims that "I don't know why they brought me here" and felt that it she should be discharged. She claims that she is up here from [place] for the past 3 weeks and was staying with friends however got kicked out and was homeless. She states that she was staying in a car and one of her male friends was taking care of her and feeding her. She states that she was doing well before coming in the hospital and did not need medications. She states that she hasn't taken any meds since November. She states that she is not having any mood swings and is denying any depression. She claims that she was "tricked into coming here" and claims that the public guardian was supposed to offer her a place to go and stay however brought her to the hospital instead. She claims that she is sleeping fairly and has a fair appetite. Patient denies any flight of ideas racing thoughts and increased in goal directed behavior. Patient admits to using marijuana one blunted day and also smoking cigarettes. Patient denies any other alcohol or recreational substance use." Hospital course: Upon admission to the unit patient was initially depressed, labile and impulsive. Patient was however admitted involuntarily and a second certificate was completed and faxed records. Patient ended up signing a deferral with her turning on 01/21/2021. Patient got along well with other patients on the unit and followed unit protocol. Patient was compliant with the medications and denied any side effects throughout hospital course. Patient was started on lithium 300 mg twice a day for mood stabilization/suicidal thoughts, Prozac 20 mg daily for mood/anxiety. Melatonin 5 mg daily at bedtime for sleep. Benadryl 50 mg daily at bedtime for insomnia. Patient spoke of her stressors and engaged in therapy both group and individual. Patient was also seen by medical team for history and physical exam. Throughout the course of the hospitalization patient gradually improved with regards to mood, anxiety, sleep and return back to her baseline level of functioning. On the day of discharge patient denied any suicidal or homicidal ideations intent or plan denied any auditory or visual hallucinations. Patient endorsed wanting to live for her future and her family. The patient denied any access to guns or weapons. Patient denied any paranoia and did not endorse any delusions. Patient does have a significant history of substance abuse and was counseled on abstaining from all substances including alcohol and marijuana. Patient was offered however declined inpatient substance- abuse rehab. Patient was also counseled on the medications and need for regular compliance and was encouraged to follow-up with their outpatient appointment for mental health and also for primary care. Prior to discharge long term care social worker made contact to alert guardian of discharge today, patient will be discharged to her friend's house. Mental status exam: General Appearance: Patient appears to be stated age is alert, pleasant, and cooperative. Patient is in no acute distress and has improved hygiene and grooming Behavior: Patient is calmly seated without any agitated behavior. Speech: Patient's speech is fluent and nonpressured. Mood/Affect: Patient reports their mood is "better", affect is congruent and euthymic. Suicidality/Homicidality: Patient denies having any suicidal or homicidal ideation intent or plan. Perceptions: Patient denies any auditory or visual hallucinations. Though content/process: There is no evidence of any delusional thought content and thought process is linear and goal-directed. more future oriented Memory and concentration: AOX3, grossly intact for the purposes of this session. Can spell "WORLD" backwards correctly. Judgment and insight: chronically poor, however has improved with guarded prognosis Impression: Bipolar disorder, current episode depressed Borderline personality disorder Cannabis abuse Nicotine dependence Plan: -Continue with discharge today as patient has improved and stabilized psych iatrically and is not currently an imminent threat to herself and/or others. Patient will remain at chronically elevated risk for harm to self and/or others due to her impulsivity. -Continue medications: Arbela 300 mg twice a day for mood stabilization/suicidal thoughts, Prozac 20 mg daily for mood/anxiety, melatonin 5 mg daily at bedtime for sleep, Benadryl 50 mg daily at bedtime for insomnia. -Patient was counseled on the need for medication compliance and appropriate follow-up at mental health and also primary care for medical issues. Patient verbalized understanding and agreed. -Social work to coordinate with guardian patient's discharge today as patient will be discharged to either the half-way versus her friend's house with [facility] follow-up. Social work also to arrange for patients follow up appointments for psychiatric care along with follow up with primary care provider. -Patient counseled on abstaining from recreational drugs and marijuana and alcohol. Was informed/educated on the adverse effects on their physical and mental health. Patient verbally agreed and understood. -Patient was instructed to return to the hospital or seek immediate medical care if their psychiatric or medical symptoms do worsen or reoccur. Allergies Allergy/AdvReac Type Severity Reaction Status Date / Time bupropion [From Wellbutrin] Allergy Severe Rash/Hives Verified 01/19/21 18:09 cephalexin [From Keflex] Allergy Severe Rash/Hives Verified 01/19/21 18:09 peach Allergy Anaphylaxis Verified 01/19/21 18:09 shellfish derived [Shrimp] Allergy Unknown Verified 01/19/21 18:09 Laboratory Results WBC 10.2 k/uL (3.8-10.6) 01/20/21 06:04 RBC 5.06 m/uL (3.80-5.40) 01/20/21 06:04 Hgb 13.7 gm/dL (11.4-16.0) 01/20/21 06:04 Hct 41.9 % (34.0-46.0) 01/20/21 06:04 MCV 82.8 fL (80.0-100.0) 01/20/21 06:04 MCH 27.0 pg (25.0-35.0) 01/20/21 06:04 MCHC 32.6 g/dL (31.0-37.0) 01/20/21 06:04 RDW 13.5 % (11.5-15.5) 01/20/21 06:04 Plt Count 345 k/uL (150-450) 01/20/21 06:04 MPV 7.4 01/20/21 06:04 Neutrophils % 56 % 01/20/21 06:04 Lymphocytes % 35 % 01/20/21 06:04 Monocytes % 5 % 01/20/21 06:04 Eosinophils % 2 % 01/20/21 06:04 Basophils % 0 % 01/20/21 06:04 Neutrophils # 5.7 k/uL (1.3-7.7) 01/20/21 06:04 Lymphocytes # 3.5 k/uL (1.0-4.8) 01/20/21 06:04 Monocytes # 0.5 k/uL (0-1.0) 01/20/21 06:04 Eosinophils # 0.2 k/uL (0-0.7) 01/20/21 06:04 Basophils # 0.0 k/uL (0-0.2) 01/20/21 06:04 Sodium 140 mmol/L (137-145) 01/20/21 06:04 Potassium 4.1 mmol/L (3.5-5.1) 01/20/21 06:04 Chloride 106 mmol/L (98-107) 01/20/21 06:04 Carbon Dioxide 25 mmol/L (22-30) 01/20/21 06:04 Anion Gap 9 mmol/L 01/20/21 06:04 BUN 15 mg/dL (7-17) 01/20/21 06:04 Creatinine 0.71 mg/dL (0.52-1.04) 01/20/21 06:04 Est GFR (CKD-EPI)AfAm >90 (>60 ml/min/1.73 sqM) 01/20/21 06:04 Est GFR (CKD-EPI)NonAf >90 (>60 ml/min/1.73 sqM) 01/20/21 06:04 Glucose 163 mg/dL (74-99) H 01/20/21 06:04 POC Glucose (mg/dL) 161 mg/dL (75-99) H 01/23/21 08:19 POC Glu At Risk Paraprofessional ID Izabel Christopher 01/23/21 08:[address] Glu mg/dL 183 01/20/21 06:04 Hemoglobin A1c 8.0 % (4.0-6.0) H 01/20/21 06:04 Calcium 9.9 mg/dL (8.4-10.2) 01/20/21 06:04 Total Bilirubin 0.6 mg/dL (0.2-1.3) 01/20/21 06:04 AST 18 U/L (14-36) 01/20/21 06:04 ALT 22 U/L (4-34) 01/20/21 06:04 Alkaline Phosphatase 70 U/L (38-126) 01/20/21 06:04 Total Protein 6.6 g/dL (6.3-8.2) 01/20/21 06:04 Albumin 4.1 g/dL (3.5-5.0) 01/20/21 06:04 Triglycerides 172.0 mg/dL (0.0-149.0) H 01/20/21 06:04 Cholesterol 126 mg/dL (0-200) 01/20/21 06:04 LDL Cholesterol, Calc 69.6 mg/dL (0.0-131.0) 01/20/21 06:04 VLDL Cholesterol, Calc 34.40 mg/dL (5.00-40.00) 01/20/21 06:04 HDL Cholesterol 22.0 mg/dL (40.0-60.0) L 01/20/21 06:04 Cholesterol/HDL Ratio 5.73 01/20/21 06:04 TSH 0.442 mIU/L (0.465-4.680) L 01/20/21 06:04 Urine Color Yellow 01/19/21 18:11 Urine Appearance Cloudy (Clear) H 01/19/21 18:11 Urine pH 5.5 (5.0-8.0) 01/19/21 18:11 Ur Specific [place] 1.031 (1.001-1.035) 01/19/21 18:11 Urine Protein 1+ (Negative) H 01/19/21 18:11 Urine Glucose (UA) Trace (Negative) H 01/19/21 18:11 Urine Ketones Negative (Negative) 01/19/21 18:11 Urine Blood Moderate (Negative) H 01/19/21 18:11 Urine Nitrite Negative (Negative) 01/19/21 18:11 Urine Bilirubin Negative (Negative) 01/19/21 18:11 Urine Urobilinogen <2.0 mg/dL (<2.0) 01/19/21 18:11 Ur Leukocyte Esterase Large (Negative) H 01/19/21 18:11 Urine RBC 19 /hpf (0-5) H 01/19/21 18:11 Urine WBC 100 /hpf (0-5) H 01/19/21 18:11 Ur Squamous Epith Cells 6 /hpf (0-4) H 01/19/21 18:11 Hyaline Casts 1 /lpf (0-2) 01/19/21 18:11 Urine Mucus Few /hpf (None) H 01/19/21 18:11 Urine HCG, Qual Not Detected (Not Detectd) 01/19/21 18:11 Urine Opiates Screen Not Detected (NotDetected) 01/19/21 18:11 Ur Oxycodone Screen Not Detected (NotDetected) 01/19/21 18:11 Urine Methadone Screen Not Detected (NotDetected) 01/19/21 18:11 Ur Propoxyphene Screen Not Detected (NotDetected) 01/19/21 18:11 Ur Barbiturates Screen Not Detected (NotDetected) 01/19/21 18:11 U Tricyclic Antidepress Not Detected (NotDetected) 01/19/21 18:11 Ur Phencyclidine Scrn Not Detected (NotDetected) 01/19/21 18:11 Ur Amphetamines Screen Not Detected (NotDetected) 01/19/21 18:11 U Methamphetamines Scrn Not Detected (NotDetected) 01/19/21 18:11 U Benzodiazepines Scrn Not Detected (NotDetected) 01/19/21 18:11 Urine Cocaine Screen Not Detected (NotDetected) 01/19/21 18:11 U Marijuana (THC) Screen Detected (NotDetected) H 01/19/21 18:11 Vital Signs Temp 98.4 F 01/20/21 01:40 Pulse 97 01/20/21 01:40 Resp 18 01/20/21 01:40 BP 121/78 01/20/21 01:40 Pulse Ox 98 01/19/21 23:35 Patient Condition at Discharge: Stable Plan - Discharge Summary New Discharge Prescriptions: New Nicotine 14Mg/24Hr Patch [Habitrol] 1 patch TRANSDERM DAILY 14 Days patch Arbela Carbonate 300 mg PO BID 30 Days cap Melatonin 5 mg PO HS PRN 30 Days tablet PRN Reason: Insomnia diphenhydrAMINE [Benadryl] 50 mg PO HS 30 Days cap metFORMIN HCL [Glucophage] 500 mg PO BID-W/MEALS 30 Days tab FLUoxetine HCL [PROzac] 20 mg PO DAILY 30 Days cap Discharge Medication List FLUoxetine HCL [PROzac] 20 mg PO DAILY 30 Days cap 01/23/21 [Rx] Arbela Carbonate 300 mg PO BID 30 Days cap 01/23/21 [Rx] Melatonin 5 mg PO HS PRN 30 Days tablet 01/23/21 [Rx] Nicotine 14Mg/24Hr Patch [Habitrol] 1 patch TRANSDERM DAILY 14 Days patch 01/23/21 [Rx] diphenhydrAMINE [Benadryl] 50 mg PO HS 30 Days cap 01/23/21 [Rx] metFORMIN HCL [Glucophage] 500 mg PO BID-W/MEALS 30 Days tab 01/23/21 [Rx] Follow up Appointment(s)/Referral(s): None,Stated [Primary Care Provider] - 1-2 days Activity/Diet/Wound Care/Special Instructions: Activity and diet as tolerated. Avoid the use of street drugs and alcohol. Take all medications as prescribed. When you are in need of refills on your medications please contact your medical provider and/or outpatient psychiatrist to have this done. Please go to scheduled outpatient appointment for aftercare treatment. If symptoms return or become worse, call the crisis line at and/or go to the nearest emergency room for evaluation. Discharge Disposition: OTHER INSTITUTION NOT DEFINED
[2021-01-23 12:50] LABS: Glucose,Whole Blood 113 mg/dL (75-99)
== END 2021-01-23 14:22 | disposition home or self-care (01) | DRG 885 ==
LOC: EC 16:43 → 3MHU 22:54
PROVIDERS: ADMIT Psychiatry & Neurology Psychiatry; ATTEND Psychiatry & Neurology Psychiatry
DX: F31.30 Bipolar disorder, current episode depressed, mild or moderate severity, unspecified (principal); R45.851 Suicidal ideations; N39.0 Urinary tract infection, site not specified; E11.9 Type 2 diabetes mellitus without complications; Z91.19 Patient's noncompliance with other medical treatment and regimen; F12.10 Cannabis abuse, uncomplicated; F60.3 Borderline personality disorder; F41.9 Anxiety disorder, unspecified; F90.9 Attention-deficit hyperactivity disorder, unspecified type; R45.87 Impulsiveness; Z91.5 Personal history of self-harm; M41.9 Scoliosis, unspecified; G47.00 Insomnia, unspecified; F17.210 Nicotine dependence, cigarettes, uncomplicated; Z71.6 Tobacco abuse counseling; Z59.0 Homelessness; Z86.19 Personal history of other infectious and parasitic diseases; Z88.1 Allergy status to other antibiotic agents; Z91.013 Allergy to seafood; Z88.8 Allergy status to other drugs, medicaments and biological substances; Z91.018 Allergy to other foods
CPT/HCPCS: 80053; 80061; 80306; 81001; 81025; 82075; 83036; 84443; 85025; 87086; 99285

== ENCOUNTER 2021-03-09 15:28 | Emergency (ER) | payer MEDICARE ==
--- NOTE | 2021-03-09 16:15 | ED ---
General Adult HPI <Ivette Dean - Last Filed: 03/09/21 16:13> - General Source: patient - History of Present Illness -: days(s) (2) Location: head Radiation: non-radiation Severity scale (1-10): 0 Consistency: intermittent Improves with: none Worsens with: none Associated Symptoms: malaise, nausea/vomiting Treatments Prior to Arrival: none <Yoni Sheldon - Last Filed: 03/09/21 23:05> - General Chief complaint: Nausea/Vomiting/Diarrhea Stated complaint: Abdominal pain, Nausea Time Seen by Provider: 03/09/21 16:13 - History of Present Illness Initial comments: Patient is a 20-year-old female presenting to emergency Department with multiple complaints including nausea over the past few days, sleeping a lot during the day, and some mild crusting around her bellybutton. She is also complaining of a mild headache. She denies any fevers or chills. No chest pain or short of breath, no abdominal pain, no diarrhea. She denies being . (Ivette Dean) See 20-year-old female, alert and oriented 4, presents to the emergency room with 2 days of not feeling well, nausea, frontal headache, body aches and malaise. She denies any chest pain or difficulty in breathing. She is sexually active and is unsure if she is . She denies any dysuria or vaginal discharge. (Yoni Sheldon) - Related Data Previous Rx's Medication Instructions Recorded FLUoxetine HCL [PROzac] 20 mg PO DAILY 30 Days cap 01/23/21 [place] Carbonate 300 mg PO BID 30 Days cap 01/23/21 metFORMIN HCL [Glucophage] 500 mg PO BID-W/MEALS 30 Days tab 01/23/21 Allergies Allergy/AdvReac Type Severity Reaction Status Date / Time bupropion [From Wellbutrin] Allergy Severe Rash/Hives Verified 03/09/21 20:14 cephalexin [From Keflex] Allergy Severe Rash/Hives Verified 03/09/21 20:14 peach Allergy Anaphylaxis Verified 03/09/21 20:14 shellfish derived [Shrimp] Allergy Unknown Verified 03/09/21 20:14 Review of Systems ROS Other: All systems not noted in ROS Statement are negative. <Ivette Dean - Last Filed: 03/09/21 16:13> ROS Other: All systems not noted in ROS Statement are negative. <Yoni Sheldon - Last Filed: 03/09/21 23:05> ROS Statement: Those systems with pertinent positive or pertinent negative responses have been documented in the HPI. Past Medical History Past Medical History: Diabetes Mellitus, Musculoskeletal Disorder Additional Past Medical History / Comment(s): SCOLIOSIS, herpes History of Any Multi-Drug Resistant Organisms: None Reported Past Surgical History: No Surgical Hx Reported Additional Past Surgical History / Comment(s): D & C 2018 Past Anesthesia/Blood Transfusion Reactions: No Reported Reaction Additional Past Anesthesia/Blood Transfusion Reaction / Comment(s): NO ANESTHESIA HX. Past Psychological History: ADD/ADHD, Anxiety, Bipolar, Depression Smoking Status: Current every day smoker Past Alcohol Use History: Occasional Past Drug Use History: Marijuana - Past Family History Mother Additional Family Medical History / Comment(s): pt is adopted <Ivette Dean - Last Filed: 03/09/21 16:13> General Exam Limitations: no limitations General appearance: alert, in no apparent distress Head exam: Present: atraumatic <Ivette Dean - Last Filed: 03/09/21 16:13> General appearance: alert, in no apparent distress Eye exam: Present: normal appearance, PERRL, EOMI. Absent: scleral icterus, conjunctival injection, periorbital swelling ENT exam: Present: normal exam, normal oropharynx, mucous membranes moist, other (Large non-erythematous tonsils) Neck exam: Present: normal inspection, full ROM. Absent: tenderness, meningism us, lymphadenopathy, thyromegaly Respiratory exam: Present: normal lung sounds bilaterally. Absent: respiratory distress, wheezes, rales, rhonchi, stridor Cardiovascular Exam: Present: regular rate, normal rhythm, normal heart sounds. Absent: systolic murmur, diastolic murmur, rubs, gallop, clicks GI/Abdominal exam: Present: soft, normal bowel sounds. Absent: distended, tenderness, guarding, rebound, rigid Extremities exam: Present: normal inspection, full ROM, normal capillary refill. Absent: tenderness, pedal edema, joint swelling, calf tenderness Back exam: Present: full ROM. Absent: tenderness Neurological exam: Present: alert, oriented X3 Psychiatric exam: Present: normal affect, normal mood Skin exam: Present: warm, dry, intact, normal color. Absent: rash, cyanosis, diaphoretic <Yoni Sheldon - Last Filed: 03/09/21 23:05> Course Vital Signs 03/09/21 03/09/21 16:13 20:13 Temperature 97.9 F 98.2 F Pulse Rate 86 86 Respiratory 18 20 Rate Blood Pressure 122/80 120/84 O2 Sat by Pulse 97 96 Oximetry Medical Decision Making - Lab Data Result diagrams: 03/09/21 19:15 03/09/21 19:15 <Yoni Sheldon - Last Filed: 03/09/21 23:05> - Medical Decision Making Pt is covid negative and negative for influenza. Her electrolytes are unremarkable. She is not and denies vaginal discharge. This is likely a viral illness and was directed to f/u with her PCP in one week and return if worse. (Yoni Sheldon) - Lab Data Lab Results 03/09/21 03/09/21 03/09/21 Range/Units 17:43 17:43 17:58 WBC (3.8-10.6) k/uL RBC (3.80-5.40) m/uL Hgb (11.4-16.0) gm/dL Hct (34.0-46.0) % MCV (80.0-100.0) fL MCH (25.0-35.0) pg MCHC (31.0-37.0) g/dL RDW (11.5-15.5) % Plt Count (150-450) k/uL MPV Neutrophils % % Lymphocytes % % Monocytes % % Eosinophils % % Basophils % % Neutrophils # (1.3-7.7) k/uL Lymphocytes # (1.0-4.8) k/uL Monocytes # (0-1.0) k/uL Eosinophils # (0-0.7) k/uL Basophils # (0-0.2) k/uL Sodium (137-145) mmol/L Potassium (3.5-5.1) mmol/L Chloride (98-107) mmol/L Carbon Dioxide (22-30) mmol/L Anion Gap mmol/L BUN (7-17) mg/dL Creatinine (0.52-1.04) mg/dL Est GFR (CKD-EPI)AfAm (>60 ml/min/1.73 sqM) Est GFR (CKD-EPI)NonAf (>60 ml/min/1.73 sqM) Glucose (74-99) mg/dL Calcium (8.4-10.2) mg/dL Total Bilirubin (0.2-1.3) mg/dL AST (14-36) U/L ALT (4-34) U/L Alkaline Phosphatase (38-126) U/L Total Protein (6.3-8.2) g/dL Albumin (3.5-5.0) g/dL Urine Color Yellow Urine Appearance Clear (Clear) Urine pH 5.5 (5.0-8.0) Ur Specific [place] 1.023 (1.001-1.035) Urine Protein Negative (Negative) Urine Glucose (UA) 2+ H (Negative) Urine Ketones Negative (Negative) Urine Blood Negative (Negative) Urine Nitrite Negative (Negative) Urine Bilirubin Negative (Negative) Urine Urobilinogen <2.0 (<2.0) mg/dL Ur Leukocyte Esterase Trace H (Negative) Urine RBC 1 (0-5) /hpf Urine WBC 1 (0-5) /hpf Ur Squamous Epith Cells 1 (0-4) /hpf Urine Bacteria Rare H (None) /hpf Urine Mucus Occasional H (None) /hpf Urine HCG, Qual Not Detected (Not Detectd) Influenza Type A (PCR) Not Detected (Not Detectd) Influenza Type B (PCR) Not Detected (Not Detectd) RSV (PCR) Not Detected (Not Detectd) SARS-CoV-2 (PCR) Not Detected (Not Detectd) 03/09/21 03/09/21 Range/Units 19:15 19:15 WBC 8.4 (3.8-10.6) k/uL RBC 4.94 (3.80-5.40) m/uL Hgb 13.4 (11.4-16.0) gm/dL Hct 41.0 (34.0-46.0) % MCV 83.0 (80.0-100.0) fL MCH 27.1 (25.0-35.0) pg MCHC 32.7 (31.0-37.0) g/dL RDW 13.0 (11.5-15.5) % Plt Count 301 (150-450) k/uL MPV 8.1 Neutrophils % 59 % Lymphocytes % 34 % Monocytes % 4 % Eosinophils % 2 % Basophils % 1 % Neutrophils # 4.9 (1.3-7.7) k/uL Lymphocytes # 2.8 (1.0-4.8) k/uL Monocytes # 0.3 (0-1.0) k/uL Eosinophils # 0.1 (0-0.7) k/uL Basophils # 0.1 (0-0.2) k/uL Sodium 139 (137-145) mmol/L Potassium 3.8 (3.5-5.1) mmol/L Chloride 105 (98-107) mmol/L Carbon Dioxide 28 (22-30) mmol/L Anion Gap 6 mmol/L BUN 11 (7-17) mg/dL Creatinine 0.65 (0.52-1.04) mg/dL Est GFR (CKD-EPI)AfAm >90 (>60 ml/min/1.73 sqM) Est GFR (CKD-EPI)NonAf >90 (>60 ml/min/1.73 sqM) Glucose 124 H (74-99) mg/dL Calcium 9.5 (8.4-10.2) mg/dL Total Bilirubin 0.3 (0.2-1.3) mg/dL AST 18 (14-36) U/L ALT 19 (4-34) U/L Alkaline Phosphatase 64 (38-126) U/L Total Protein 7.0 (6.3-8.2) g/dL Albumin 4.1 (3.5-5.0) g/dL Urine Color Urine Appearance (Clear) Urine pH (5.0-8.0) Ur Specific [place] (1.001-1.035) Urine Protein (Negative) Urine Glucose (UA) (Negative) Urine Ketones (Negative) Urine Blood (Negative) Urine Nitrite (Negative) Urine Bilirubin (Negative) Urine Urobilinogen (<2.0) mg/dL Ur Leukocyte Esterase (Negative) Urine RBC (0-5) /hpf Urine WBC (0-5) /hpf Ur Squamous Epith Cells (0-4) /hpf Urine Bacteria (None) /hpf Urine Mucus (None) /hpf Urine HCG, Qual (Not Detectd) Influenza Type A (PCR) (Not Detectd) Influenza Type B (PCR) (Not Detectd) RSV (PCR) (Not Detectd) SARS-CoV-2 (PCR) (Not Detectd) Disposition <Ivette Dean - Last Filed: 03/09/21 16:13> Is patient prescribed a controlled substance at d/c from ED?: No Time of Disposition: 20:07 <Yoni Sheldon - Last Filed: 03/09/21 23:05> Clinical Impression: Nausea Disposition: HOME SELF-CARE Condition: Good Instructions (If sedation given, give patient instructions): Acute Nausea and Vomiting (ED) Additional Instructions: Follow-up with your primary care doctor in 1 week. Return with any new or worsening symptoms including increased pain or fevers. Referrals: None,Stated [Primary Care Provider] - 1-2 days
[2021-03-09 16:16] VITALS: PULSE 86
[2021-03-09] MEDS ORDERED: ONDANSETRON ODT 4 MG TAB PO STA (17:55)
[2021-03-09 17:59] LABS: Appearance,Urine Clear (Clear); Bacteria,Urine Rare /hpf; Bilirubin,Urine Negative (Negative); Blood,Urine Negative (Negative); Color,Urine Yellow; Glucose,Urine (UA) 2+ (Negative); Ketones,Urine Negative (Negative); Leukocyte Esterase,Urine Trace (Negative); Mucus,Urine Occasional /hpf; Nitrite,Urine Negative (Negative); PH, Urine 5.5 (5.0-8.0); Protein,Urine Negative (Negative); RBC,Urine 1 /hpf (0-5); Specific Gravity,Urine 1.023 (1.001-1.035); Squamous Epithelial Cell,Urine 1 /hpf (0-4); Urobilinogen,Urine <2.0 mg/dL (<2.0); WBC,Urine 1 /hpf (0-5)
[2021-03-09] MEDS ORDERED: SODIUM CHLORIDE 0.9% 1,000 ML IV STA (18:50)
[2021-03-09 19:26] LABS: Basophils # (A) 0.1 k/uL (0-0.2); Basophils % (A) 1 %; Eosinophils # (A) 0.1 k/uL (0-0.7); Eosinophils % (A) 2 %; HGB 13.4 gm/dL (11.4-16.0); Lymphocytes # (A) 2.8 k/uL (1.0-4.8); Lymphocytes % (A) 34 %; MCH 27.1 pg (25.0-35.0); MCHC 32.7 g/dL (31.0-37.0); Mean Platelet Volume 8.1; Monocytes # (A) 0.3 k/uL (0-1.0); Monocytes % (A) 4 %; Neutrophils # (A) 4.9 k/uL (1.3-7.7); Neutrophils % (A) 59 %; Platelet Count 301 k/uL (150-450); RBC 4.94 m/uL (3.80-5.40); WBC 8.4 k/uL (3.8-10.6)
[2021-03-09 19:36] LABS: ALT 19 U/L (4-34); AST 18 U/L (14-36); African American GFR (CKD) >90 (>60 ml/min/1.73 sqM); Albumin 4.1 g/dL (3.5-5.0); Alkaline Phosphatase 64 U/L (38-126); Anion Gap 6 mmol/L; Blood Urea Nitrogen 11 mg/dL (7-17); Calcium 9.5 mg/dL (8.4-10.2); Carbon Dioxide 28 mmol/L (22-30); Chloride 105 mmol/L (98-107); Glucose 124 mg/dL (74-99); Non-African American GFR(CKD) >90 (>60 ml/min/1.73 sqM); Potassium 3.8 mmol/L (3.5-5.1); Sodium 139 mmol/L (137-145); Total Bilirubin 0.3 mg/dL (0.2-1.3)
[2021-03-09 20:15] VITALS: BP 120/84; RESP 20; TEMP 98.2
== END 2021-03-09 20:15 | disposition home or self-care (01) ==
LOC: EC 15:28
DX: R11.0 Nausea (principal); R10.9 Unspecified abdominal pain; E11.9 Type 2 diabetes mellitus without complications; F90.9 Attention-deficit hyperactivity disorder, unspecified type; F31.9 Bipolar disorder, unspecified; F41.9 Anxiety disorder, unspecified; F17.200 Nicotine dependence, unspecified, uncomplicated; F12.90 Cannabis use, unspecified, uncomplicated; Z20.822 Contact with and (suspected) exposure to COVID-19; Z79.84 Long term (current) use of oral hypoglycemic drugs
CPT/HCPCS: 36415; 80053; 81001; 81025; 85025; 87636; 96360; 99284

== ENCOUNTER 2021-03-14 23:05 | Emergency (ER) | payer MEDICARE ==
[2021-03-14 23:13] VITALS: BP 144/85; PULSE 88; RESP 20; TEMP 98.3
[2021-03-15] MEDS ORDERED: KETOROLAC 15 MG/ML 1 ML VIAL IM STA (01:36)
--- NOTE | 2021-03-15 01:58 | ED ---
Skin/Abscess/FB HPI - General Chief complaint: Skin/Abscess/Foreign Body Stated complaint: infected facial piercing Time Seen by Provider: 03/15/21 01:20 Source: patient Mode of arrival: ambulatory Limitations: no limitations - History of Present Illness Initial comments: 20-year-old female presents to emergency Department with chief complaint of pain at the piercing site. Patient reports 4 days ago she received a piercing on her left cheek and now she has developed gradual increased swelling to the region. She also reports some discharge at the piercing site but denies any associated erythema fevers or chills. She reports it is tender to touch. She states she attempted to remove the piercing but was unable to due to the swelling. She denies any traumatic injuries to the region. - Related Data Previous Rx's Medication Instructions Recorded FLUoxetine HCL [PROzac] 20 mg PO DAILY 30 Days cap 01/23/21 [place] Carbonate 300 mg PO BID 30 Days cap 01/23/21 metFORMIN HCL [Glucophage] 500 mg PO BID-W/MEALS 30 Days tab 01/23/21 Allergies Allergy/AdvReac Type Severity Reaction Status Date / Time bupropion [From Wellbutrin] Allergy Severe Rash/Hives Verified 03/14/21 23:13 cephalexin [From Keflex] Allergy Severe Rash/Hives Verified 03/14/21 23:13 peach Allergy Anaphylaxis Verified 03/14/21 23:13 shellfish derived [Shrimp] Allergy Unknown Verified 03/14/21 23:13 Review of Systems ROS Statement: Those systems with pertinent positive or pertinent negative responses have been documented in the HPI. ROS Other: All systems not noted in ROS Statement are negative. Past Medical History Past Medical History: Diabetes Mellitus, Musculoskeletal Disorder Additional Past Medical History / Comment(s): SCOLIOSIS, herpes History of Any Multi-Drug Resistant Organisms: None Reported Past Surgical History: No Surgical Hx Reported Additional Past Surgical History / Comment(s): D & C 2018 Past Anesthesia/Blood Transfusion Reactions: No Reported Reaction Additional Past Anesthesia/Blood Transfusion Reaction / Comment(s): NO ANESTHESIA HX. Past Psychological History: ADD/ADHD, Anxiety, Bipolar, Depression Smoking Status: Current every day smoker Past Alcohol Use History: Occasional Past Drug Use History: Marijuana - Past Family History Mother Additional Family Medical History / Comment(s): pt is adopted General Exam Limitations: no limitations General appearance: alert, in no apparent distress Head exam: Present: atraumatic, normocephalic, normal inspection Eye exam: Present: normal appearance, PERRL, EOMI Pupils: Present: normal accommodation ENT exam: Present: normal exam, mucous membranes moist, TM's normal bilaterally, normal external ear exam. Absent: normal oropharynx (Mild swelling noted on the left cheek at the site of the piercing. No signs of erythema or anything to suggest an infection at this time.) Neck exam: Present: normal inspection, full ROM. Absent: tenderness, lymphadenopathy Respiratory exam: Present: normal lung sounds bilaterally. Absent: respiratory distress Cardiovascular Exam: Present: regular rate, normal rhythm, normal heart sounds. Absent: systolic murmur Extremities exam: Present: normal inspection, full ROM. Absent: tenderness Back exam: Present: normal inspection, full ROM. Absent: tenderness Neurological exam: Present: alert, oriented X3 Psychiatric exam: Present: normal affect, normal mood. Absent: depressed Skin exam: Present: warm, dry, intact, normal color Course Vital Signs 03/14/21 23:11 Temperature 98.3 F Pulse Rate 88 Respiratory 20 Rate Blood Pressure 144/85 O2 Sat by Pulse 98 Oximetry Medical Decision Making - Medical Decision Making 20-year-old female presents to emergency Department with chief complaint of a swollen cheek due to piercing. Physical examination, there is no erythema or other sinuses just an infection at this time. I was able to remove the piercing with repair of wire cutters. Patient tolerated procedure well. Her tetanus is up-to-date. I will not start the patient on her buttocks at this time. I advised her to return to emergency department if she continues to have symptoms. The swelling is likely due to inflammation. Advised her to alternate between Tylenol and Motrin. Otherwise her to keep cold compresses. I did apply an ice pack here which greatly improved her symptoms. Return parameters were thoroughly discussed with patient is an attending agreeable. Case discussed physician. Disposition Clinical Impression: Inflammation associated with voluntary body piercing Disposition: HOME SELF-CARE Condition: Stable Additional Instructions: Please return to the Emergency Department if symptoms worsen or any other concerns. Is patient prescribed a controlled substance at d/c from ED?: No Referrals: Huong Reaves III, MD [Primary Care Provider] - 1-2 days Time of Disposition: 01:58
== END 2021-03-15 02:04 | disposition home or self-care (01) ==
LOC: EC 23:05
DX: L08.89 Other specified local infections of the skin and subcutaneous tissue (principal); E11.9 Type 2 diabetes mellitus without complications; F31.9 Bipolar disorder, unspecified; F41.9 Anxiety disorder, unspecified; F17.200 Nicotine dependence, unspecified, uncomplicated; F12.90 Cannabis use, unspecified, uncomplicated; Z79.84 Long term (current) use of oral hypoglycemic drugs
CPT/HCPCS: 99283; 96372; J1885

== ENCOUNTER 2021-03-17 16:23 | Emergency (ER) | payer OTHER, MEDICARE ==
[2021-03-17 16:53] VITALS: TEMP 98.3
--- NOTE | 2021-03-17 17:34 | XR ---
EXAMINATION TYPE: XR wrist complete RT DATE OF EXAM: 03/17/2021 COMPARISON: NONE HISTORY: Pain TECHNIQUE: 4 views FINDINGS: Carpal bones appear intact. Radiocarpal joint appears normal. Metacarpals are intact. Scaph oid appears normal. IMPRESSION: Negative right wrist exam.
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
[2021-03-17 18:23] VITALS: BP 122/74; PULSE 89; RESP 20
== END 2021-03-17 18:23 | disposition home or self-care (01) ==
LOC: EC 16:23
DX: M25.531 Pain in right wrist (principal); E11.9 Type 2 diabetes mellitus without complications; F17.200 Nicotine dependence, unspecified, uncomplicated; F12.90 Cannabis use, unspecified, uncomplicated; F31.9 Bipolar disorder, unspecified; F41.9 Anxiety disorder, unspecified; Z79.84 Long term (current) use of oral hypoglycemic drugs; Z79.899 Other long term (current) drug therapy; V43.52XA Car driver injured in collision with other type car in traffic accident, initial encounter; Y92.410 Unspecified street and highway as the place of occurrence of the external cause
CPT/HCPCS: 71046; 99284